=== PATIENT | male | born 1970 | race American Indian/Alaskan Native ===

== ENCOUNTER 2017-07-15 20:50 | Inpatient (IN) | payer MEDICARE, OTHER ==
[2017-07-15 21:27] LABS: Basophils % (Auto) 0.2 % (0.0-1.8); Eosinophils % (Auto) 0.5 % (0.0-4.3); Hematocrit 37.9 % (35.5-45.6); Lymphocytes # (Auto) 1.2 K/mm3 (1.2-5.4); Lymphocytes % (Auto) 20.4 % (13.4-35.0); Mean Corpuscular HGB Conc 34 % (32-34); Mean Corpuscular Hemoglobin 28 pg (28-32); Mean Corpuscular Volume 82 fl (84-94); Monocytes # (Auto) 0.4 K/mm3 (0.0-0.8); Monocytes % (Auto) 6.1 % (0.0-7.3); Platelet Count 136 K/mm3 (140-440); Red Blood Count 4.64 M/mm3 (3.65-5.03); Red Cell Distribution Width 15.1 % (13.2-15.2)
[2017-07-15 21:42] LABS: Bilirubin,Urine NEG (Negative); Blood,Urine NEG (Negative); Color,Urine Yellow (Yellow); Mucus,Urine FEW /HPF; Urobilinogen,Urine < 2.0 mg/dL (<2.0); WBC,Urine < 1.0 /HPF (0.0-6.0)
[2017-07-15 21:45] LABS: Alanine Aminotransferase 17 units/L (7-56); Albumin 4.3 g/dL (3.9-5); BUN/Creatinine Ratio 16; Blood Urea Nitrogen 14 mg/dL (9-20); Hemolysis Index 3; Lipase 64 units/L (13-60)
--- NOTE | 2017-07-16 06:32 | Emergency Department Report ---
ED Abdominal Pain HPI - General Chief Complaint: Abdominal Pain Stated Complaint: VOMITING Time Seen by Provider: 07/16/17 06:28 Source: patient Mode of arrival: Ambulatory Limitations: No Limitations - History of Present Illness Initial Comments: 47-year-old male has a history of pancreatitis. He complains of epigastric pain and vomiting. States the symptoms started yesterday. He's had no fever or chills. MD Complaint: abdominal pain -: Gradual, days(s) Location: epigastric Radiation: none Migration to: no migration Severity: moderate Quality: aching Consistency: constant Improves With: nothing Worsens With: nothing Associated Symptoms: vomiting - Related Data Allergies Allergy/AdvReac Type Severity Reaction Status Date / Time No Known Allergies Allergy Unverified 06/01/15 08:36 ED Review of Systems ROS: Stated complaint: VOMITING Other details as noted in HPI Constitutional: denies: chills, fever Eyes: denies: eye pain, eye discharge, vision change ENT: denies: ear pain, throat pain Respiratory: denies: cough, shortness of breath, wheezing Cardiovascular: denies: chest pain, palpitations Endocrine: no symptoms reported Gastrointestinal: abdominal pain, nausea, vomiting. denies: diarrhea Genitourinary: denies: urgency, dysuria Musculoskeletal: denies: back pain, joint swelling, arthralgia Skin: denies: rash, lesions Neurological: denies: headache, weakness, paresthesias Psychiatric: denies: anxiety, depression Hematological/Lymphatic: denies: easy bleeding, easy bruising ED Past Medical Hx - Past Medical History Previous Medical History?: Yes Additional medical history: Pancretitis - Surgical History Past Surgical History?: Yes Additional Surgical History: left ankle - Social History Smoking Status: Never Smoker Substance Use Type: None ED Physical Exam - General Limitations: No Limitations General appearance: alert, in no apparent distress - Head Head exam: Present: atraumatic, normocephalic - Eye Eye exam: Present: normal appearance - ENT ENT exam: Present: mucous membranes moist - Neck Neck exam: Present: normal inspection - Respiratory Respiratory exam: Present: normal lung sounds bilaterally. Absent: respiratory distress - Cardiovascular Cardiovascular Exam: Present: regular rate, normal rhythm. Absent: systolic murmur, diastolic murmur, rubs, gallop - GI/Abdominal GI/Abdominal exam: Present: soft, tenderness (epigastric mild to moderate), normal bowel sounds. Absent: distended, guarding, rebound, rigid - Rectal Rectal exam: Present: deferred - Extremities Exam Extremities exam: Present: normal inspection - Back Exam Back exam: Present: normal inspection - Neurological Exam Neurological exam: Present: alert, oriented X3, CN II-XII intact. Absent: motor sensory deficit - Psychiatric Psychiatric exam: Present: normal affect, normal mood - Skin Skin exam: Present: warm, dry, intact, normal color. Absent: rash ED Course Vital Signs 07/15/17 07/16/17 07/16/17 21:00 06:27 06:52 Temperature 99.3 F 97.9 F Pulse Rate 102 H 69 Respiratory 17 16 16 Rate Blood Pressure 185/113 Blood Pressure 131/80 [Right] O2 Sat by Pulse 97 100 100 Oximetry 07/16/17 07/16/17 07:46 07:50 Temperature 97.9 F Pulse Rate 62 Respiratory 16 Rate Blood Pressure Blood Pressure 169/96 [Right] O2 Sat by Pulse 98 98 Oximetry - Reevaluation(s) Reevaluation #1: Vascular study is negative for splenic vein thrombosis. CT of the abdomen and pelvis is positive for edema of the pancreas and a pseudocyst of the tail. Extrinsic Compression of the stomach is noted. Patient has recurrent pain. I think he would be better off with bowel rest IV fluids and analgesia in the hospital. He is admitted to Dr. Cardona"s service for further care and evaluation 07/16/17 10:28 ED Medical Decision Making - Lab Data Result diagrams: 07/15/17 21:14 07/15/17 21:14 Laboratory Results - last 24 hr 07/15/17 07/15/17 07/15/17 21:14 21:14 Unknown WBC 5.9 RBC 4.64 Hgb 13.0 Hct 37.9 MCV 82 L MCH 28 MCHC 34 RDW 15.1 Plt Count 136 L Lymph % (Auto) 20.4 [place] % (Auto) 6.1 Eos % (Auto) 0.5 Baso % (Auto) 0.2 Lymph # 1.2 [place] # 0.4 Eos # 0.0 Baso # 0.0 Seg Neutrophils % 72.8 H Seg Neutrophils # 4.3 Sodium 139 Potassium 3.8 Chloride 95.8 L Carbon Dioxide 33 H Anion Gap 14 BUN 14 Creatinine 0.9 Estimated GFR > 60 BUN/Creatinine Ratio 16 Glucose 130 H Calcium 9.0 Total Bilirubin 0.40 AST 32 ALT 17 Alkaline Phosphatase 70 Total Protein 8.2 Albumin 4.3 Albumin/Globulin Ratio 1.1 Lipase 64 H Urine Color Yellow Urine Turbidity Clear Urine pH 8.0 H Ur Specific [place] 1.019 Urine Protein 30 mg/dl Urine Glucose (UA) Neg Urine Ketones Neg Urine Blood Neg Urine Nitrite Neg Urine Bilirubin Neg Urine Urobilinogen < 2.0 Ur Leukocyte Esterase Neg Urine WBC (Auto) < 1.0 Urine RBC (Auto) 5.0 Urine Mucus Few - Radiology Data Radiology results: report reviewed Critical care attestation.: If time is entered above; I have spent that time in minutes in the direct care of this critically ill patient, excluding procedure time. ED Disposition Clinical Impression: Pancreatic pseudocyst Acute pancreatitis Qualifiers: Pancreatitis type: other Acute pancreatitis complication: unspecified Qualified Code(s): K85.80 - Other acute pancreatitis without necrosis or infection Disposition: 09 OP ADMIT IP TO THIS HOSP Is pt being admited?: Yes Does the pt Need Aspirin: No Condition: Stable Referrals: PRIMARY MD CECE [Primary Care Provider] - 3-5 Days Time of Disposition: 10:33
[2017-07-16] MEDS ORDERED: DILAUDID IV ONE ×3 (07:08→10:25)
[2017-07-16] MEDS ORDERED: PROTONIX IV ONE (07:08)
[2017-07-16] MEDS ORDERED: ZOFRAN IV ONE ×3 (07:08→10:25)
[2017-07-16] MEDS ORDERED: NACL 0.9% 1000 ML 1,000 ML IV ONE (07:08)
--- NOTE | 2017-07-16 09:57 | Cat Scan Report ---
CT scan of abdomen and pelvis with IV and oral contrast: Compared to 06/01/15. History: Abdominal pain. Findings: Normal lung bases. No pleural pericardial effusion. Normal liver spleen. Patient status post cholecystectomy. There is a pseudocyst identified the tail of the pancreas which is smaller in size compared to previous study and measures 2.4 cm in diameter. Edema noted on the body of the pancreas with extrinsic pressure on the adjacent stomach. Normal adrenals. Small cyst in the left and right kidney without interval change. Normal bladder. No free intraperitoneal fluid or air. No evidence of adenopathy. Gaseous colonic stool in colon. No evidence of appendicitis or diverticulitis. Impression: Smaller pseudocyst tail of the pancreas compared to previous study. Edema of the body of pancreas with extrinsic pressure on the adjacent stomach. Bilateral small cysts without interval change
--- NOTE | 2017-07-16 10:42 | History and Physical Report ---
History of Present Illness Chief complaint: Vomiting of blood History of present illness: 47-year-old -[place] male with past medical history significant for alcoholic pancreatitis presented to the emergency department with complaints of vomiting of dark material that started yesterday. Patient had vomited 10-12x yesterday and all are coffee ground emesis. Patient has associated nausea but denied diarrhea, fever, chills. She is also complaining generalized abdominal pain, sharp and crampy, 9/10 in intensity, with no radiation. Patient said he had history of alcoholic pancreatitis and last episode was more months ago. Patient quit drinking alcohol 10 years ago. Patient has been followed by Dr. Sibley. Patient had history of splenic vein thrombosis per ER doctor report. REVIEW OF SYSTEMS: GENERAL: no weight change, no fatigue, no fever HEAD: no head ache EYES: no blurry vision, no acute visual loss EARS: no hearing loss, no discharge, no earache NOSE: no stuffiness, no sneezing, no discharge MOUTH, THROAT AND NECK: no bleeding gums, no sore throat, no swollen neck CARDIAC: no palpitations, no dyspnea on exertion, no orthopnea, no PND, no edema , no chest pain RESPIRATORY: no shortness of breath, no wheeze, no cough, no sputum, no hemoptysis, no asthma GI: As stated in the HPI. URINARY: no change in frequency, no urgency, no polyuria, no hematuria, no incontinence MUSCULOSKELETAL: no muscle weakness, no pain, no joint stiffness NEUROLOGIC: no loss of sensation/numbness, no tingling, no tremors, no weakness/ paralysis HEMATOLOGIC: no anemia, no easy bruising SKIN: no rashes ENDOCRINE: no heat/cold intolerance, no polyuria, no polydipsia, no thyroid problems, no diabetes PSYCHIATRIC: no anxiety, no depression, no suicidal ideations Past History Past Medical History: other (pancreatitis) Past Surgical History: cholecystectomy Social history: full code. denies: smoking, alcohol abuse (quit 10 years ago), prescription drug abuse, IV drug use Family history: cancer (lung ca both mother and father) Medications and Allergies Allergies Allergy/AdvReac Type Severity Reaction Status Date / Time No Known Allergies Allergy Unverified 06/01/15 08:36 Active Meds: Active Medications Sodium Chloride (Nacl 0.9% 1000 Ml) 1,000 mls @ 125 mls/hr IV ONCE ONE Stop: 07/16/17 15:07 Last Admin: 07/16/17 07:40 Dose: 125 mls/hr Exam - Physical Exam Narrative exam: Not in cardiopulmonary distress. The patient appeared well nourished and normally developed. Vital signs as documented. Head exam is unremarkable. No scleral icterus . Neck is without jugular venous distension, thyromegaly, or carotid bruits. Lungs are clear to auscultation. Cardiac exam reveals regular rate and Rhythm. First and second heart sounds normal. No murmurs, rubs or gallops. Abdominal exam reveals abdominal tenderness. Extremities are nonedematous and both femoral and pedal pulses are normal. [employer]: Alert and oriented 3. No focal weakness. - Constitutional Vitals: Temp Pulse Resp BP Pulse Ox 97.9 F 62 16 169/96 98 07/16/17 07:50 07/16/17 07:50 07/16/17 07:50 07/16/17 07:50 07/16/17 07:50 Results - Labs CBC & Chem 7: 07/15/17 21:14 07/15/17 21:14 Labs: Laboratory Last Values WBC 5.9 K/mm3 (4.5-11.0) 07/15/17 21:14 RBC 4.64 M/mm3 (3.65-5.03) 07/15/17 21:14 Hgb 13.0 gm/dl (11.8-15.2) 07/15/17 21:14 Hct 37.9 % (35.5-45.6) 07/15/17 21:14 MCV 82 fl (84-94) L 07/15/17 21:14 MCH 28 pg (28-32) 07/15/17 21:14 MCHC 34 % (32-34) 07/15/17 21:14 RDW 15.1 % (13.2-15.2) 07/15/17 21:14 Plt Count 136 K/mm3 (140-440) L 07/15/17 21:14 Lymph % (Auto) 20.4 % (13.4-35.0) 07/15/17 21:14 [place] % (Auto) 6.1 % (0.0-7.3) 07/15/17 21:14 Eos % (Auto) 0.5 % (0.0-4.3) 07/15/17 21:14 Baso % (Auto) 0.2 % (0.0-1.8) 07/15/17 21:14 Lymph # 1.2 K/mm3 (1.2-5.4) 07/15/17 21:14 [place] # 0.4 K/mm3 (0.0-0.8) 07/15/17 21:14 Eos # 0.0 K/mm3 (0.0-0.4) 07/15/17 21:14 Baso # 0.0 K/mm3 (0.0-0.1) 07/15/17 21:14 Seg Neutrophils % 72.8 % (40.0-70.0) H 07/15/17 21:14 Seg Neutrophils # 4.3 K/mm3 (1.8-7.7) 07/15/17 21:14 Sodium 139 mmol/L (137-145) 07/15/17 21:14 Potassium 3.8 mmol/L (3.6-5.0) 07/15/17 21:14 Chloride 95.8 mmol/L (98-107) L 07/15/17 21:14 Carbon Dioxide 33 mmol/L (22-30) H 07/15/17 21:14 Anion Gap 14 mmol/L 07/15/17 21:14 BUN 14 mg/dL (9-20) 07/15/17 21:14 Creatinine 0.9 mg/dL (0.8-1.5) 07/15/17 21:14 Estimated GFR > 60 ml/min 07/15/17 21:14 BUN/Creatinine Ratio 16 % 07/15/17 21:14 Glucose 130 mg/dL (75-100) H 07/15/17 21:14 Calcium 9.0 mg/dL (8.4-10.2) 07/15/17 21:14 Total Bilirubin 0.40 mg/dL (0.1-1.2) 07/15/17 21:14 AST 32 units/L (5-40) 07/15/17 21:14 ALT 17 units/L (7-56) 07/15/17 21:14 Alkaline Phosphatase 70 units/L (35-129) 07/15/17 21:14 Total Protein 8.2 g/dL (6.3-8.2) 07/15/17 21:14 Albumin 4.3 g/dL (3.9-5) 07/15/17 21:14 Albumin/Globulin Ratio 1.1 % 07/15/17 21:14 Lipase 64 units/L (13-60) H 07/15/17 21:14 Urine Color Yellow (Yellow) 07/15/17 Unknown Urine Turbidity Clear (Clear) 07/15/17 Unknown Urine pH 8.0 (5.0-7.0) H 07/15/17 Unknown Ur Specific [place] 1.019 (1.003-1.030) 07/15/17 Unknown Urine Protein 30 mg/dl mg/dL (Negative) 07/15/17 Unknown Urine Glucose (UA) Neg mg/dL (Negative) 07/15/17 Unknown Urine Ketones Neg mg/dL (Negative) 07/15/17 Unknown Urine Blood Neg (Negative) 07/15/17 Unknown Urine Nitrite Neg (Negative) 07/15/17 Unknown Urine Bilirubin Neg (Negative) 07/15/17 Unknown Urine Urobilinogen < 2.0 mg/dL (<2.0) 07/15/17 Unknown Ur Leukocyte Esterase Neg (Negative) 07/15/17 Unknown Urine WBC (Auto) < 1.0 /HPF (0.0-6.0) 07/15/17 Unknown Urine RBC (Auto) 5.0 /HPF (0.0-6.0) 07/15/17 Unknown Urine Mucus Few /HPF 07/15/17 Unknown - Imaging and Cardiology US - abdomen: report reviewed Assessment and Plan Assessment and plan: Upper GI bleed - Patient is on IV pantoprazole, nothing by mouth, IV fluids, monitor H&H - GI consulted Pancreatitis with pseudocyst - CT abdomen and pelvis showed, pancreatitis, pseudocyst with compression of the gastric area - Lipase is not elevated much - Aorto iliac ultrasound was done to rule out thrombosis - Pain control History of Splenic vein Thrombosis Per ER doc - not on any anticoagulation DVT prophylaxis - heparin Disposition - Admit to medical floor Advance Directives: Yes VTE prophylaxis?: Chemical Plan of care discussed with patient/family: Yes
[2017-07-16] MEDS ORDERED: ZOFRAN IV PRN (14:29)
[2017-07-16] MEDS: D5NS 1,000 ML IV SCH (14:39)
[2017-07-16] MEDS: PROTONIX IV SCH ×2 (14:42→22:21)
[2017-07-16] MEDS: DILAUDID IV PRN ×3 (14:43→22:20)
[2017-07-16 16:29] LABS: Hemoglobin 11.9 gm/dl (11.8-15.2)
[2017-07-16 20:30] LABS: Hematocrit 38.6 % (35.5-45.6); Hemoglobin 12.6 gm/dl (11.8-15.2)
[2017-07-17] MEDS: DILAUDID IV PRN ×6 (02:19→22:11)
[2017-07-17 03:05] LABS: Basophils % (Auto) 0.3 % (0.0-1.8); Eosinophils % (Auto) 0.7 % (0.0-4.3); Hematocrit 36.9 % (35.5-45.6); Hemoglobin 12.5 gm/dl (11.8-15.2); Lymphocytes # (Auto) 1.5 K/mm3 (1.2-5.4); Lymphocytes % (Auto) 28.8 % (13.4-35.0); Mean Corpuscular HGB Conc 34 % (32-34); Mean Corpuscular Hemoglobin 28 pg (28-32); Mean Corpuscular Volume 82 fl (84-94); Monocytes # (Auto) 0.3 K/mm3 (0.0-0.8); Monocytes % (Auto) 6.2 % (0.0-7.3); Platelet Count 142 K/mm3 (140-440); Red Cell Distribution Width 14.7 % (13.2-15.2)
[2017-07-17 03:25] LABS: Alanine Aminotransferase 13 units/L (7-56); Albumin 3.8 g/dL (3.9-5); BUN/Creatinine Ratio 14; Blood Urea Nitrogen 10 mg/dL (9-20); Calcium 8.4 mg/dL (8.4-10.2); Hemolysis Index 4
[2017-07-17] MEDS: D5NS 1,000 ML IV SCH ×2 (05:05→18:12)
[2017-07-17 09:55] LABS: Hemoglobin 12.2 gm/dl (11.8-15.2)
--- NOTE | 2017-07-17 10:00 | Gastroenterology Consultation ---
History of Present Illness - Reason for Consult Consult date: 07/17/17 pancreatitis, GI bleed Requesting physician: THOMAS CABRALES - History of Present Illness Patient is a 47 y/o male with PMH of chronic pancreatitis who presented to ED with c/o epigastric pain and N/V with coffee-ground emesis. Upon admission, H/H was found to be stable. Lipase was noted to elevated at [address] showing edema of the pancreas, a pseudocyst of the tail (smaller than previous study), and extrinsic compression of the stomach. Patient is previously known to our service and followed by Dr. Sibley. 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 Aorto iliac U/S this admission negative for thrombosis. Last EGD 12/2016. No hx of ETOH abuse. This morning pt was resting in bed w/o acute distress. Reports epigastric pain and N/V are now improved. Denies any further episodes of CGE since Monday. No hematemesis, melena, or hematochezia. Denies CP, SOB, dizziness, wt loss, dysphagia, odynophagia, diarrhea, or constipation. Past History Past Medical History: other (pancreatitis, splenic vein thrombosis, gastric/ esophageal varices) Past Surgical History: cholecystectomy Social history: full code. denies: smoking, alcohol abuse (quit 10 years ago), prescription drug abuse, IV drug use Family history: cancer (lung ca both mother and father) Medications and Allergies Allergies Allergy/AdvReac Type Severity Reaction Status Date / Time No Known Allergies Allergy Unverified 06/01/15 08:36 Active Meds: Active Medications Hydromorphone HCl (Dilaudid) 1 mg IV Q4H PRN PRN Reason: Pain , Severe (7-10) Last Admin: 07/17/17 06:33 Dose: 1 mg Dextrose/Sodium Chloride (D5ns) 1,000 mls @ 75 mls/hr IV DIRECT ROBERTH Last Admin: 07/17/17 05:05 Dose: 75 mls/hr Ondansetron HCl (Zofran) 4 mg IV Q8H PRN PRN Reason: N/V unrelieved by Reglan Pantoprazole Sodium (Protonix) 40 mg IV BID ROBERTH Last Admin: 07/16/17 22:21 Dose: 40 mg Review of Systems - Review of Systems All systems: negative Gastrointestinal: abdominal pain, nausea, vomiting, coffee ground emesis Exam - Constitutional Vital Signs: Temp Pulse Resp BP Pulse Ox 98.7 F 73 15 144/84 95 07/17/17 07:18 07/17/17 07:18 07/17/17 07:18 07/17/17 07:18 07/17/17 07:18 General appearance: no acute distress - EENT Eyes: PERRL, EOM intact ENT: hearing intact - Respiratory Respiratory: bilateral: CTA - Cardiovascular Rhythm: regular Heart Sounds: Present: S1 & S2 - Gastrointestinal General gastrointestinal: Present: soft, non-tender, non-distended, normal bowel sounds, other (midline scar from previous surgery) - Neurologic Neurological: alert and oriented x3 - Labs CBC & Chem 7: 07/17/17 09:41 07/17/17 02:45 Lab Results: Laboratory Results - last 24 hr 07/16/17 07/16/17 07/17/17 15:55 20:02 02:45 WBC 5.3 RBC 4.50 Hgb 11.9 12.6 12.5 Hct 36.0 38.6 36.9 MCV 82 L MCH 28 MCHC 34 RDW 14.7 Plt Count 142 Lymph % (Auto) 28.8 [place] % (Auto) 6.2 Eos % (Auto) 0.7 Baso % (Auto) 0.3 Lymph # 1.5 [place] # 0.3 Eos # 0.0 Baso # 0.0 Seg Neutrophils % 64.0 Seg Neutrophils # 3.4 Sodium Potassium Chloride Carbon Dioxide Anion Gap BUN Creatinine Estimated GFR BUN/Creatinine Ratio Glucose Calcium Total Bilirubin AST ALT Alkaline Phosphatase Total Protein Albumin Albumin/Globulin Ratio 07/17/17 07/17/17 02:45 09:41 WBC RBC Hgb 12.2 Hct 36.0 MCV MCH MCHC RDW Plt Count Lymph % (Auto) [place] % (Auto) Eos % (Auto) Baso % (Auto) Lymph # [place] # Eos # Baso # Seg Neutrophils % Seg Neutrophils # Sodium 136 L Potassium 3.9 Chloride 98.0 Carbon Dioxide 26 D Anion Gap 16 BUN 10 Creatinine 0.7 L Estimated GFR > 60 BUN/Creatinine Ratio 14 Glucose 125 H Calcium 8.4 Total Bilirubin 0.80 AST 16 ALT 13 Alkaline Phosphatase 55 Total Protein 6.5 D Albumin 3.8 L Albumin/Globulin Ratio 1.4 Assessment and Plan 1.epigastric pain 2.N/V 3.coffee-ground emesis 4.h/o chronic pancreatitis 2/2 traumatic work injury (no ETOH abuse) 5.h/o gastro-esophageal varices 2/2 hx of splenic vein thrombosis -lipase 64 -LFTs-WNL -abd CT showed edema of the pancreas, smaller pseudocyst of the tail, and extrinsic compression of the stomach -Aorto iliac U/S-negative for thrombosis -H/H stable-12.5/36.9 -continue to monitor H/H and transfuse as needed -no active signs of bleeding x 2 days -last EGD 12/2016 revealed gastro-esophageal varices and esophagitis -no plans for repeat EGD at this time, unless overt bleeding develops -clinically, pt is stable and reports feeling better with epigastric pain and N/ V now improved -start clear liquids-advance as tolerated -continue PPI and supportive care -patient will likely need radiological ablation of gastric varices as an outpatient -further recommendations to follow
[2017-07-17] MEDS: PROTONIX IV SCH ×2 (10:12→22:12)
--- NOTE | 2017-07-17 15:35 | Progress Note ---
Assessment and Plan Assessment and plan: Upper GI bleed - Patient is on PPI, started on clear liquid diet - GI consulted and patient doesn't need EGD Pancreatitis with pseudocyst - CT abdomen and pelvis showed, pseudocyst with compression of the gastric area - Lipase is not elevated much - Aorto iliac ultrasound was done to rule out thrombosis - Pain control History of Splenic vein Thrombosis Per ER doc DVT prophylaxis - heparin Disposition - Per GI History Interval history: Patient was seen and evaluated this morning, patient's abdominal pain is getting better, patient didn't have hematemesis after admission. Hospitalist Physical - Physical exam Narrative exam: Not in cardiopulmonary distress. The patient appeared well nourished and normally developed. Vital signs as documented. Head exam is unremarkable. No scleral icterus . Neck is without jugular venous distension, thyromegaly, or carotid bruits. Lungs are clear to auscultation. Cardiac exam reveals regular rate and Rhythm. First and second heart sounds normal. No murmurs, rubs or gallops. Abdominal exam reveals no abdominal tenderness. Extremities are nonedematous and both femoral and pedal pulses are normal. RECYCLING TECH: Alert and oriented 3. No focal weakness. - Constitutional Vitals: Temp Pulse Resp BP Pulse Ox 99.2 F 71 16 140/82 95 07/17/17 15:19 07/17/17 15:19 07/17/17 15:19 07/17/17 15:19 07/17/17 15:19 Results - Labs CBC & Chem 7: 07/17/17 09:41 07/17/17 02:45 Labs: Laboratory Last Values WBC 5.3 K/mm3 (4.5-11.0) 07/17/17 02:45 RBC 4.50 M/mm3 (3.65-5.03) 07/17/17 02:45 Hgb 12.2 gm/dl (11.8-15.2) 07/17/17 09:41 Hct 36.0 % (35.5-45.6) 07/17/17 09:41 MCV 82 fl (84-94) L 07/17/17 02:45 MCH 28 pg (28-32) 07/17/17 02:45 MCHC 34 % (32-34) 07/17/17 02:45 RDW 14.7 % (13.2-15.2) 07/17/17 02:45 Plt Count 142 K/mm3 (140-440) 07/17/17 02:45 Lymph % (Auto) 28.8 % (13.4-35.0) 07/17/17 02:45 [place] % (Auto) 6.2 % (0.0-7.3) 07/17/17 02:45 Eos % (Auto) 0.7 % (0.0-4.3) 07/17/17 02:45 Baso % (Auto) 0.3 % (0.0-1.8) 07/17/17 02:45 Lymph # 1.5 K/mm3 (1.2-5.4) 07/17/17 02:45 [place] # 0.3 K/mm3 (0.0-0.8) 07/17/17 02:45 Eos # 0.0 K/mm3 (0.0-0.4) 07/17/17 02:45 Baso # 0.0 K/mm3 (0.0-0.1) 07/17/17 02:45 Seg Neutrophils % 64.0 % (40.0-70.0) 07/17/17 02:45 Seg Neutrophils # 3.4 K/mm3 (1.8-7.7) 07/17/17 02:45 Sodium 136 mmol/L (137-145) L 07/17/17 02:45 Potassium 3.9 mmol/L (3.6-5.0) 07/17/17 02:45 Chloride 98.0 mmol/L (98-107) 07/17/17 02:45 Carbon Dioxide 26 mmol/L (22-30) D 07/17/17 02:45 Anion Gap 16 mmol/L 07/17/17 02:45 BUN 10 mg/dL (9-20) 07/17/17 02:45 Creatinine 0.7 mg/dL (0.8-1.5) L 07/17/17 02:45 Estimated GFR > 60 ml/min 07/17/17 02:45 BUN/Creatinine Ratio 14 % 07/17/17 02:45 Glucose 125 mg/dL (75-100) H 07/17/17 02:45 Calcium 8.4 mg/dL (8.4-10.2) 07/17/17 02:45 Total Bilirubin 0.80 mg/dL (0.1-1.2) 07/17/17 02:45 AST 16 units/L (5-40) 07/17/17 02:45 ALT 13 units/L (7-56) 07/17/17 02:45 Alkaline Phosphatase 55 units/L (35-129) 07/17/17 02:45 Total Protein 6.5 g/dL (6.3-8.2) D 07/17/17 02:45 Albumin 3.8 g/dL (3.9-5) L 07/17/17 02:45 Albumin/Globulin Ratio 1.4 % 07/17/17 02:45 Lipase 64 units/L (13-60) H 07/15/17 21:14 Urine Color Yellow (Yellow) 07/15/17 Unknown Urine Turbidity Clear (Clear) 07/15/17 Unknown Urine pH 8.0 (5.0-7.0) H 07/15/17 Unknown Ur Specific [place] 1.019 (1.003-1.030) 07/15/17 Unknown Urine Protein 30 mg/dl mg/dL (Negative) 07/15/17 Unknown Urine Glucose (UA) Neg mg/dL (Negative) 07/15/17 Unknown Urine Ketones Neg mg/dL (Negative) 07/15/17 Unknown Urine Blood Neg (Negative) 07/15/17 Unknown Urine Nitrite Neg (Negative) 07/15/17 Unknown Urine Bilirubin Neg (Negative) 07/15/17 Unknown Urine Urobilinogen < 2.0 mg/dL (<2.0) 07/15/17 Unknown Ur Leukocyte Esterase Neg (Negative) 07/15/17 Unknown Urine WBC (Auto) < 1.0 /HPF (0.0-6.0) 07/15/17 Unknown Urine RBC (Auto) 5.0 /HPF (0.0-6.0) 07/15/17 Unknown Urine Mucus Few /HPF 07/15/17 Unknown
--- NOTE | 2017-07-17 16:52 | Vascular Lab Report ---
Splenic vein ultrasound Reason for exam: Splenic vein thrombosis Comments: The splenic vein was poorly visualized due to overlying bowel gas. The midportion of the splenic vein could not be seen. The portions of the splenic vein which are visualized are patent however. The hepatic vein appears to be patent. The inferior vena cava appears to be patent. A complex cystic structure appears to be at the hilum of the spleen. Impression: Incomplete visualization of the splenic vein. Portions are visible are patent. Nonspecific cystic structure seen at the hilum of the spleen. Consider further evaluation.
[2017-07-18] MEDS: DILAUDID IV PRN ×4 (02:12→14:22)
[2017-07-18] MEDS: D5NS 1,000 ML IV SCH (06:19)
[2017-07-18 07:23] LABS: Basophils % (Auto) 0.3 % (0.0-1.8); Eosinophils % (Auto) 1.4 % (0.0-4.3); Hemoglobin 11.8 gm/dl (11.8-15.2); Lymphocytes # (Auto) 1.4 K/mm3 (1.2-5.4); Lymphocytes % (Auto) 38.1 % (13.4-35.0); Mean Corpuscular HGB Conc 35 % (32-34); Mean Corpuscular Hemoglobin 28 pg (28-32); Mean Corpuscular Volume 81 fl (84-94); Monocytes # (Auto) 0.3 K/mm3 (0.0-0.8); Monocytes % (Auto) 8.7 % (0.0-7.3); Platelet Count 126 K/mm3 (140-440); Red Cell Distribution Width 14.7 % (13.2-15.2)
[2017-07-18 08:29] LABS: Alanine Aminotransferase 12 units/L (7-56); Albumin 3.5 g/dL (3.9-5); BUN/Creatinine Ratio 13; Blood Urea Nitrogen 9 mg/dL (9-20); Hemolysis Index 4; Lipase 73 units/L (13-60)
[2017-07-18 08:53] VITALS: BP 137/92
--- NOTE | 2017-07-18 09:44 | Gastroenterology Progress Note ---
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 -abd CT showed edema of the pancreas, smaller pseudocyst of the tail, and extrinsic compression of the stomach -Aorto iliac U/S-negative for thrombosis -HGB 11.8 -continue to monitor H/H and transfuse as needed -no active signs of bleeding overnight or this am -last EGD 12/2016 revealed gastro-esophageal varices and esophagitis -no plans for repeat EGD at this time, unless overt bleeding develops -clinically, pt is stable with abd pain now improved to baseline and no N/V -tolerating clears- will advance diet -continue PPI and supportive care -no further GI recommendations at this time -patient okay to be d/c per GI standpoint with follow up clinic appt in 2 weeks to schedule possible referral for radiological ablation of gastric varices -will sign off, please call if needed Subjective Date of service: 07/18/17 Principal diagnosis: pancreatitis, GI bleed Interval history: Patient resting in bed w/o distress. He reports feeling better this am with no abd improved to his baseline. Denies N/V and tolerating clears. Requesting to advance diet. Objective - Constitutional Vitals: Temp Pulse Resp BP Pulse Ox 98.4 F 67 20 137/92 96 07/18/17 07:31 07/18/17 07:31 07/18/17 07:31 07/18/17 07:31 07/18/17 07:31 General appearance: no acute distress - Respiratory Respiratory: bilateral: CTA - Cardiovascular Rhythm: regular Heart Sounds: Present: S1 & S2 - Gastrointestinal General gastrointestinal: Present: soft, non-tender, non-distended, normal bowel sounds, other (midline scar from previous surgery) - Neurologic Neurological: alert and oriented x3 - Labs CBC & Chem 7: 07/18/17 05:33 07/18/17 05:33 Labs: Laboratory Results - last 24 hr 07/17/17 07/18/17 07/18/17 09:41 05:33 05:33 WBC 3.6 L RBC 4.20 Hgb 12.2 11.8 Hct 36.0 34.0 L MCV 81 L MCH 28 MCHC 35 H RDW 14.7 Plt Count 126 L Lymph % (Auto) 38.1 H [place] % (Auto) 8.7 H Eos % (Auto) 1.4 Baso % (Auto) 0.3 Lymph # 1.4 [place] # 0.3 Eos # 0.0 Baso # 0.0 Seg Neutrophils % 51.5 Seg Neutrophils # 1.8 Sodium 137 Potassium 4.0 Chloride 101.0 Carbon Dioxide 29 Anion Gap 11 BUN 9 Creatinine 0.7 L Estimated GFR > 60 BUN/Creatinine Ratio 13 Glucose 133 H Calcium 8.0 L Total Bilirubin 0.50 AST 14 ALT 12 Alkaline Phosphatase 57 C-Reactive Protein 0.10 Total Protein 6.5 Albumin 3.5 L Albumin/Globulin Ratio 1.2 Lipase 73 H <DEMETRA MERAZ R - Last Filed: 07/18/17 17:12> Assessment and Plan Agree with discharge. Will defer to Dr. Sibley regarding management of known non -bleeding gastro-esophageal varices. Objective - Constitutional Vitals: Temp Pulse Resp BP Pulse Ox 98.4 F 67 20 137/92 96 07/18/17 07:31 07/18/17 07:31 07/18/17 07:31 07/18/17 07:31 07/18/17 07:31 - Labs CBC & Chem 7: 07/18/17 05:33 07/18/17 05:33 Labs: Laboratory Results - last 24 hr 07/18/17 07/18/17 05:33 05:33 WBC 3.6 L RBC 4.20 Hgb 11.8 Hct 34.0 L MCV 81 L MCH 28 MCHC 35 H RDW 14.7 Plt Count 126 L Lymph % (Auto) 38.1 H [place] % (Auto) 8.7 H Eos % (Auto) 1.4 Baso % (Auto) 0.3 Lymph # 1.4 [place] # 0.3 Eos # 0.0 Baso # 0.0 Seg Neutrophils % 51.5 Seg Neutrophils # 1.8 Sodium 137 Potassium 4.0 Chloride 101.0 Carbon Dioxide 29 Anion Gap 11 BUN 9 Creatinine 0.7 L Estimated GFR > 60 BUN/Creatinine Ratio 13 Glucose 133 H Calcium 8.0 L Total Bilirubin 0.50 AST 14 ALT 12 Alkaline Phosphatase 57 C-Reactive Protein 0.10 Total Protein 6.5 Albumin 3.5 L Albumin/Globulin Ratio 1.2 Lipase 73 H
[2017-07-18] MEDS ORDERED: PROTONIX PO SCH (10:00)
--- NOTE | 2017-07-18 11:53 | Discharge Summary ---
Providers - Providers Date of Admission: 07/16/17 10:34 Attending physician: THOMAS CABRALES MD 07/16/17 10:43 Consult to Physician [CONS] Routine Comment: Consulting Provider: GERMAN MORRISON Physician Instructions: Reason For Exam: Pancreatitis with Pseudocyst, GI bleed Primary care physician: [employer] Hospitalization Reason for admission: Upper GI bleed Condition: Stable Disposition: DC-01 TO HOME OR SELFCARE Time spent for discharge: 31 minutes - Discharge Diagnoses (1) Hematemesis Status: Acute (2) Pancreatic pseudocyst Status: Acute (3) Varices, esophageal Status: Acute (4) Varices, gastric Status: Acute (5) Splenic vein thrombosis Status: Chronic Core Measure Documentation - Palliative Care Palliative Care/ Comfort Measures: Not Applicable - Core Measures Any of the following diagnoses?: none Exam - Physical Exam Narrative exam: Not in cardiopulmonary distress. The patient appeared well nourished and normally developed. Vital signs as documented. Head exam is unremarkable. No scleral icterus . Neck is without jugular venous distension, thyromegaly, or carotid bruits. Lungs are clear to auscultation. Cardiac exam reveals regular rate and Rhythm. First and second heart sounds normal. No murmurs, rubs or gallops. Abdominal exam reveals no abdominal tenderness. Extremities are nonedematous and both femoral and pedal pulses are normal. PLASMA SPECIALIST: Alert and oriented 3. No focal weakness. - Constitutional Vitals: Temp Pulse Resp BP Pulse Ox 98.4 F 67 20 137/92 96 07/18/17 07:31 07/18/17 07:31 07/18/17 07:31 07/18/17 07:31 07/18/17 07:31 Plan Activity: no restrictions Weight Bearing Status: Full Weight Bearing Diet: advance as tolerated Additional Instructions: [facility] Follow up with: STEVEN ZHAO MD [Primary Care Provider] - 3-5 Days GERMAN MORRISON MD [Staff Physician] - 14 Days Prescriptions: Pantoprazole [Protonix TAB] 40 mg PO DAILY #30 tablet
== END 2017-07-18 16:40 | disposition home or self-care (01) | DRG 368 ==
LOC: ED 20:50 → 3A 07-16 10:34
PROVIDERS: ADMIT Internal Medicine; ATTEND Internal Medicine
DX: I85.01 Esophageal varices with bleeding (principal); K85.90 Acute pancreatitis without necrosis or infection, unspecified; K86.3 Pseudocyst of pancreas; K92.0 Hematemesis; D73.5 Infarction of spleen; I86.4 Gastric varices
CPT/HCPCS: 36415; 74177; 80053; 81001; 83690; 85014; 85018; 85025; 86140; 93979; C9113; J1170; J2405; J7030; J7042; Q9967

== ENCOUNTER 2017-11-15 11:37 | Inpatient (IN) | payer MEDICAID ==
[2017-11-14 09:04] LABS: Basophils % (Auto) 0.3 % (0.0-1.8); Eosinophils # (Auto) 0.1 K/mm3 (0.0-0.4); Eosinophils % (Auto) 1.7 % (0.0-4.3); Hematocrit 40.1 % (35.5-45.6); Hemoglobin 13.7 gm/dl (11.8-15.2); Lymphocytes # (Auto) 1.4 K/mm3 (1.2-5.4); Lymphocytes % (Auto) 27.6 % (13.4-35.0); Mean Corpuscular HGB Conc 34 % (32-34); Mean Corpuscular Hemoglobin 28 pg (28-32); Mean Corpuscular Volume 83 fl (84-94); Monocytes # (Auto) 0.3 K/mm3 (0.0-0.8); Monocytes % (Auto) 5.5 % (0.0-7.3); Platelet Count 170 K/mm3 (140-440); Red Blood Count 4.83 M/mm3 (3.65-5.03); Red Cell Distribution Width 14.7 % (13.2-15.2)
--- NOTE | 2017-11-14 09:18 | Anesthesia Consultation ---
Anesthesia Consult and Med Hx Date of service: 11/14/17 - Airway Anesthetic Teeth Evaluation: Good ROM Head & Neck: Adequate Mental/Hyoid Distance: Adequate Mallampati Class: Class I Intubation Access Assessment: Good - Pulmonary Exam CTA: Yes - Cardiac Exam Cardiac Exam: RRR - Pre-Operative Health Status ASA Pre-Surgery Classification: ASA3 Proposed Anesthetic Plan: General - Pulmonary Hx Asthma: No COPD: No Hx Pneumonia: No - Central Nervous System Hx Psychiatric Problems: No - Gastrointestinal Hx Gastroesophageal Reflux Disease: Yes (hx of esophageal varices) - Endocrine Hx End Stage Renal Disease: No Hx Liver Disease: Yes (probable given hx of EtOH abuse in the past; hx of recurrent pancreatitis) Hx Non-Insulin Dependent Diabetes: Yes - Other Systems 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
[2017-11-15 09:19] LABS: INR 0.98 (0.87-1.13); Partial Thromboplastin Time 27.5 Sec. (24.2-36.6)
[2017-11-15 09:25] LABS: Alanine Aminotransferase 15 units/L (7-56); BUN/Creatinine Ratio 14; Blood Urea Nitrogen 10 mg/dL (9-20); Calcium 8.7 mg/dL (8.4-10.2); Hemolysis Index 2
[2017-11-15] MEDS: NACL 0.9% 1000 ML 1,000 ML IV SCH ×2 (09:57→21:43)
--- NOTE | 2017-11-15 11:12 | Operative Report ---
Operative Report Operative Report: Exam: Splenic artery embolization Clinical indication: Patient with enlarging gastric varices, preop embolization prior to splenectomy Date: 11/15/2017 Procedure: Following an explanation of the risks, benefits and alternatives; written informed consent was obtained. The patient was brought the angiographic suite and placed in supine position on the examination table. Initial ultrasound evaluation of his right groin demonstrated a patent right common femoral artery. The patient's right groin was prepped and draped in the usual sterile fashion. 1% lidocaine was used for anesthesia. Under ultrasound guidance, the right common femoral artery was cannulated with a 7 cm 21-gauge needle. A 0.018 guidewire was advanced centrally. The needle was removed and a micro-sheath placed. A 0.018 guidewire was exchanged for a 0.035 guidewire and the micro-sheath exchanged for a 5 [place] vascular sheath. The 5 [place] SOS Omni catheter was advanced over the guidewire and advanced to the distal abdominal aorta. The guidewire was removed. Selective cannulation of the celiac artery was performed which demonstrated prompt opacification of the common hepatic and splenic arteries. There is an upward course of the celiac artery demonstrated on CT. The origin of the superior mesenteric artery was also identified. The catheter placed in the celiac artery, a renegade hypo- microcatheter was then advanced through the 5 [place] catheter over a transcend wire. Together the guidewire and catheter were advanced into the distal splenic artery. Angiography was performed and the catheter tip positioned just proximal to the splenic hilum. Embolization of the spleen was then performed using a Gelfoam slurry to vascular pruning. Postembolization images demonstrated sluggish flow in the splenic artery with appropriate vascular pruning. The catheters, guidewires and sheaths were removed and hemostasis achieved using an Angio-Seal arterial closure device. A sterile compression dressing was applied. The patient tolerated the procedure well. There were no immediate post procedure complications. Conscious sedation was performed under the guidance of radiologic nursing. Continuous cardiopulmonary monitoring was utilized. Impression: Successful Splenic artery embolization with Gelfoam slurry
[~2017-11-15 11:37] MED LIST: ACD-A 500 ML IV ONE; ANCEF/STERILE WATER 2 GM/20 ML 2 GM/20 ML SYRINGE IV NR; ANCEF/STERILE WATER 2 GM/20 ML 2 GM/20 ML SYRINGE IV ONE; DILAUDID ONE; DIPRIVAN 10 MG/ML IV ONE; GELFOAM TP ONE; HEPARIN/NS 5000 UNIT/500ML(CATH LAB) 1,000 ML IR ONE; MARCAINE 0.5% INFILTRATI ONE; NEURONTIN PO SCH; SUBLIMAZE ONE; VERSED ONE; XYLOCAINE 2% INFILTRATI ONE; XYLOCAINE MPF 2% ONE; ZEMURON IV ONE
--- NOTE | 2017-11-15 11:48 | Anesthesia Day of Surgery ---
Anesthesia Day of Surgery - Day of Surgery Patient Examined: Yes Patient H&P Reviewed: Yes Patient is NPO: Yes (except for oral Gabapentin taken 1.5 hours prior)
[2017-11-15] MEDS ORDERED: DEMEROL IV PRN ×2 (12:00→18:52)
[2017-11-15] MEDS ORDERED: PERCOCET 5/325 PO PRN ×2 (12:00→18:52)
[2017-11-15] MEDS ORDERED: DILAUDID IV PRN ×2 (12:00→23:38)
[2017-11-15] MEDS ORDERED: ZOFRAN IV PRN ×3 (12:00→23:38)
[2017-11-15] MEDS ORDERED: NARCAN 0.4 MG/1 ML IV PRN (12:00)
[2017-11-15] MEDS ORDERED: QUELICIN ONE (13:14)
[2017-11-15] MEDS ORDERED: ANCEF ONE (13:58)
[2017-11-15] MEDS ORDERED: NEO SYNEPHRINE/NS Syringe(OR USE) IV ONE (14:08)
[2017-11-15] MEDS ORDERED: ZEMURON IV ONE (15:04)
[2017-11-15] MEDS ORDERED: ALBURX 25% (ALBUMIN) IV ONE (16:14)
[2017-11-15] MEDS ORDERED: GELFOAM TP ONE (17:07)
[2017-11-15] MEDS ORDERED: THROMBIN (BOVINE) TP ONE (17:07)
[2017-11-15] MEDS ORDERED: DECADRON ONE (17:19)
[2017-11-15] MEDS ORDERED: CALCIUM CHLORIDE IV ONE (17:22)
[2017-11-15] MEDS ORDERED: ROBINUL ONE (17:34)
[2017-11-15] MEDS ORDERED: BLOXIVERZ ONE (17:34)
[2017-11-15] MEDS ORDERED: DILAUDID ONE ×3 (18:09→20:27)
--- NOTE | 2017-11-15 18:18 | Post Operative Note ---
Date of procedure: 11/15/17 (Dictation: [id number]) Pre-op diagnosis: gastric varices Post-op diagnosis: same Findings: very dense adhesions in lesser sac. Very dense pancreas. Procedure: Open splenectomy Anesthesia: PATRICIA Surgeon: [facility] [employer] Agent: MIKAYLA CRANDALL Estimated blood loss: other (1200cc) Pathology: list (spleen) Specimen disposition: to lab Condition: stable Disposition: PACU
[2017-11-15] MEDS: DILAUDID IV PRN ×4 (19:00→23:51)
[2017-11-15] MEDS ORDERED: NACL 0.9% 1000 ML 1,000 ML ONE (19:47)
[2017-11-15 20:00] LABS: Hematocrit 34.4 % (35.5-45.6); Hemoglobin 11.7 gm/dl (11.8-15.2); Mean Corpuscular HGB Conc 34 % (32-34); Mean Corpuscular Hemoglobin 29 pg (28-32); Mean Corpuscular Volume 84 fl (84-94); Platelet Count 172 K/mm3 (140-440); Red Blood Count 4.09 M/mm3 (3.65-5.03)
[2017-11-15 20:31] LABS: Alanine Aminotransferase 12 units/L (7-56); Albumin 3.6 g/dL (3.9-5); BUN/Creatinine Ratio 12; Blood Urea Nitrogen 11 mg/dL (9-20); Calcium 8.6 mg/dL (8.4-10.2); Hemolysis Index 8
--- NOTE | 2017-11-15 21:29 | Operative Report ---
PREOPERATIVE DIAGNOSES: 1. Gastric varices. 2. Splenic vein thrombosis. POSTOPERATIVE DIAGNOSES: 1. Gastric varices. 2. Splenic vein thrombosis. PROCEDURE: Open splenectomy. ATTENDING PHYSICIAN: Dominic Veliz MD. PATTERN MECHANIC: Dr. Verdugo. ANESTHESIA: General. ESTIMATED BLOOD LOSS: 1200 mL. FLUIDS: 2200 mL crystalloid, 450 mL blood/cell saver 100 mL of 25% albumin. FINDINGS: Very dense adhesions in the left upper quadrant and in the lesser sac, very hard, firm pancreas, and small supple pancreatic pseudocyst was identified. DRAINS: None. COMPLICATIONS: Stable, transferred to recovery. INDICATIONS: This is a 47-year-old male who presented for evaluation of splenectomy after recurrent GI bleeds. The patient was identified to have gastric varices that was felt to be secondary to splenic vein thrombosis. The patient was felt to be appropriate for an open splenectomy. Procedure, risks, benefits, alternatives were discussed. Risks included, but were not limited to infection, bleeding, pain, injury to surrounding structures, possible need for bowel resection, possible need for further procedures in the future. The patient understood and consented. OPERATIVE NOTE: The patient was brought to the operating room after being in the interventional radiology suite for a splenic artery embolization sterile prep and drape was performed after general anesthesia was established, the patient had a TAP block in the holding area. Antibiotics were administered. SCDs were in place. Time-out was called. We began by marking out the left subcostal incision and we extended across the midline to the right in a stick was used for dissection through the subcutaneous tissue and deep to that, we used the LigaSure device for dividing the muscle. We knew the patient with increased risk for bleeding from his varices. Therefore, we made more liberal use of the LigaSure device to minimize bleeding. Minimal adhesions were found above the intestines as we entered the peritoneal cavity, we entered safely. As we entered the lesser sac and dissected out the spleen. It became very apparent that these adhesions within the lesser sac were extremely dense. It was very difficult to identify what was stomach versus colon. We eventually were able to discern the separation, right over the pancreas. The adhesions were almost rock hard. We had to modify our approach multiple times based on what we were able to safely dissect. At times, we are working over the body of the pancreas in the lesser sac. At other times, we were going around the spleen to try to mobilize it. Ultimately what we identified was that the adhesions in the hilum were incredibly hard and dense. The pancreas itself very hard. It was densely adherent in the retroperitoneum. Therefore, we got to a point where I felt to try to remove the pseudocyst which we knew from the prior CT scan was getting smaller. Would only put him at high risk for further bleeding and I was very worried that if we took off a portion of the pancreatic tail that we would not get adequate closure with either sutures or shimon and the patient would have a very high risk for a pancreatic fistula. Our main goal in doing the surgery was to decompress the gastric varices, which requires only the splenectomy. Therefore, I felt the better course would be to complete the splenectomy, decrease the pressure in the gastric varices, and leave the pseudocyst alone, which was resolving on its own and therefore, eliminate the risk of a pancreatic fistula. I discussed this with Dr. Verdugo and she was in agreement. Ultimately, the very dense adhesions we ended up using the LigaSure device to divide. We took great care to make sure that we knew exactly what tissue we were dividing and that we would not be dividing any organs that may be adherent to the spleen. Ultimately in the hilar region, we ended up coming across the hilum and across a portion of the spleen itself. This ended up being the only viable option that we had. So, we came across the hilar vessels with the LigaSure device and a very small rim of splenic tissue that was left behind. The pancreas appeared to be completely intact. We thoroughly evaluated the stomach. There was one small vessel that was bleeding that was controlled with a 3-0 suture ligature. The pancreas as mentioned completely intact. The colon was completely intact. Hemostasis was achieved with a combination of electrocautery, suture ligation, pressure, and hemoblast, which is a hemostatic agent. At the end of precaution, we put thrombin and Gelfoam in one area in the posterior portion of the cavity where the spleen had been removed. It seemed to be more mild oozing rather than any significant vessel; however, I did not want to ignore this and patient potentially have a continuing bleed requiring we take back to the OR. Therefore, we continued on and made sure that at the end, there was no active bleeding and we monitored this for quite a while and at the very end, felt uncomfortable that the patient had no active bleeding. We then proceeded to close the fascia. It was closed in 2 layers using a looped PDS suture. Subcutaneous tissue was thoroughly irrigated and skin was closed with shimon. Skin was clean and dry dressings were placed. The patient tolerated procedure well. Vital signs were normal in the PACU. He was awake, extubated, and breathing comfortably. I spoke with the family in detail. I gave them all the details of surgery. I answered all the questions, they were appreciative. JOB# [id number] NIA/SALLY
[2017-11-15 21:40] LABS: Anisocytosis 1+; Basophils % (Manual) 0 % (0.0-1.8); Eosinophils % (Manual) 0 % (0.0-4.3); Platelet Estimate Consistent w Auto; Poikilocytosis 1+; Total Cells Counted 100
[2017-11-15] MEDS ORDERED: SODIUM CHLORIDE FLUSH SYRINGE 10 ML IV PRN (23:38)
[2017-11-15] MEDS ORDERED: TYLENOL FEEDTUBE PRN (23:38)
[2017-11-15] MEDS: PEPCID IV SCH (23:38)
[2017-11-15] MEDS: SODIUM CHLORIDE FLUSH SYRINGE 10 ML IV SCH (23:38)
[2017-11-16] MEDS: DILAUDID IV PRN ×3 (04:40→12:57)
[2017-11-16 05:30] LABS: Hematocrit 33.9 % (35.5-45.6); Hemoglobin 11.3 gm/dl (11.8-15.2); Lymphocytes # (Auto) 0.8 K/mm3 (1.2-5.4); Lymphocytes % (Auto) 5.2 % (13.4-35.0); Mean Corpuscular HGB Conc 33 % (32-34); Mean Corpuscular Hemoglobin 28 pg (28-32); Mean Corpuscular Volume 84 fl (84-94); Monocytes # (Auto) 0.8 K/mm3 (0.0-0.8); Monocytes % (Auto) 4.9 % (0.0-7.3); Platelet Count 196 K/mm3 (140-440); Red Blood Count 4.02 M/mm3 (3.65-5.03); Red Cell Distribution Width 15.3 % (13.2-15.2)
[2017-11-16 05:47] LABS: BUN/Creatinine Ratio 17; Blood Urea Nitrogen 15 mg/dL (9-20); Calcium 8.5 mg/dL (8.4-10.2); Hemolysis Index 5
--- NOTE | 2017-11-16 07:23 | Post Anesthesia Evaluation ---
- Post Anesthesia Evaluation Patient Participated: Yes Airway Patent: Yes Stable Respiratory Function: Yes Nausea/Vomiting: No Temp > 96.8F: Yes Pain Manageable: Yes Adequeate Hydration: Yes Anesthesia Complications: No Block Receding Appropriately: Not Applicable Patient on Ventilator: No
[2017-11-16] MEDS: NACL 0.9% 1000 ML 1,000 ML IV SCH ×2 (07:58→18:24)
[2017-11-16] MEDS ORDERED: BENADRYL PO PRN (08:19)
--- NOTE | 2017-11-16 10:01 | Progress Note ---
Assessment and Plan - Patient Problems (1) Varices, gastric Current Visit: No Status: Acute Plan to address problem: Pt stable - s/p open splenectomy - 11/15 POD#1. A/P: Neuro - no issues. alert and oriented CV - tachycardia appears to be pain related. Order ECHOCARDIOGRAPHY TECH for better pain control Pulm - encourage use of IS. OOB to chair GI - clamp NGT - minimal output and no symptoms. Start sips of clears. Possibly remove NGT later today. Remove dressings tomorrow. - pichardo out this AM Heme- Lovenox this evening. CBC in AM ID - no issues. Leukocytosis is reactive to surgery and splenectomy Dispo - transfer to [facility]. Discussed with Dr. Sanders. Time=15min Subjective Date of service: 11/16/17 Patient Reports: Positive: still having pain, other (tolerating ice chips). Negative: nausea, vomiting, shortness of breath Objective Vital Signs - 12hr 11/15/17 11/15/17 11/15/17 22:00 22:15 22:30 Temperature Pulse Rate 109 H 109 H 106 H Respiratory 14 9 L 11 L Rate Blood Pressure 136/79 131/76 121/79 O2 Sat by Pulse 98 98 98 Oximetry 11/15/17 11/15/17 11/15/17 22:45 23:00 23:15 Temperature Pulse Rate 109 H 104 H 104 H Respiratory 11 L 11 L 10 L Rate Blood Pressure 127/78 138/83 130/92 O2 Sat by Pulse 98 98 98 Oximetry 11/15/17 11/15/17 11/15/17 23:30 23:43 23:45 Temperature Pulse Rate 124 H 101 H 100 H Respiratory 16 10 L 11 L Rate Blood Pressure 142/94 142/94 140/86 O2 Sat by Pulse 99 98 98 Oximetry 11/16/17 11/16/17 11/16/17 00:00 00:02 00:30 Temperature 98.9 F Pulse Rate 97 H 101 H 104 H Respiratory 11 L 10 L 10 L Rate Blood Pressure 136/82 136/82 125/74 O2 Sat by Pulse 98 98 98 Oximetry 11/16/17 11/16/17 11/16/17 01:00 01:30 02:00 Temperature Pulse Rate 103 H 103 H 102 H Respiratory 10 L 10 L 11 L Rate Blood Pressure 125/74 133/79 134/80 O2 Sat by Pulse 99 99 99 Oximetry 11/16/17 11/16/17 11/16/17 02:30 03:00 03:30 Temperature Pulse Rate 99 H 95 H 99 H Respiratory 12 12 11 L Rate Blood Pressure 134/80 128/68 137/82 O2 Sat by Pulse 99 98 98 Oximetry 11/16/17 11/16/17 11/16/17 04:00 04:30 05:00 Temperature 98.8 F Pulse Rate 99 H 101 H 133 H Respiratory 11 L 16 19 Rate Blood Pressure 146/85 137/78 154/97 O2 Sat by Pulse 99 98 98 Oximetry 11/16/17 11/16/17 11/16/17 05:30 06:00 08:00 Temperature 98.6 F Pulse Rate 101 H 100 H Respiratory 12 14 Rate Blood Pressure 147/83 158/84 O2 Sat by Pulse 98 99 98 Oximetry - General physical appearance no distress, moderate pain - Eyes normal occular movement - Respiratory normal expansion, normal respiratory effort - Abdomen soft, tender (appropriate. no tenderness in lower abdomen), bowel sounds hypoactive, not distended, not guarding, not rigid, other (dressing with minimal drainage) - Integumentary no rash, no growths, no abnormal pigmentation - Psychiatric oriented to time, oriented to person, oriented to place, speech is normal, memory intact - Labs 11/16/17 04:12 11/16/17 04:12 Diabetes panel 11/15/17 11/16/17 Range/Units 19:43 04:12 Sodium 138 137 (137-145) mmol/L Potassium 4.9 5.1 H (3.6-5.0) mmol/L Chloride 101.6 98.9 (98-107) mmol/L Carbon Dioxide 24 24 (22-30) mmol/L BUN 11 15 (9-20) mg/dL Creatinine 0.9 0.9 (0.8-1.5) mg/dL Glucose 247 H 282 H (75-100) mg/dL Calcium 8.6 8.5 (8.4-10.2) mg/dL AST 18 (5-40) units/L ALT 12 (7-56) units/L Alkaline Phosphatase 53 (35-129) units/L Total Protein 5.9 L (6.3-8.2) g/dL Albumin 3.6 L (3.9-5) g/dL Calcium panel 11/15/17 11/16/17 Range/Units 19:43 04:12 Calcium 8.6 8.5 (8.4-10.2) mg/dL Albumin 3.6 L (3.9-5) g/dL Pituitary panel 11/15/17 11/16/17 Range/Units 19:43 04:12 Sodium 138 137 (137-145) mmol/L Potassium 4.9 5.1 H (3.6-5.0) mmol/L Chloride 101.6 98.9 (98-107) mmol/L Carbon Dioxide 24 24 (22-30) mmol/L BUN 11 15 (9-20) mg/dL Creatinine 0.9 0.9 (0.8-1.5) mg/dL Glucose 247 H 282 H (75-100) mg/dL Calcium 8.6 8.5 (8.4-10.2) mg/dL Adrenal panel 11/15/17 11/16/17 Range/Units 19:43 04:12 Sodium 138 137 (137-145) mmol/L Potassium 4.9 5.1 H (3.6-5.0) mmol/L Chloride 101.6 98.9 (98-107) mmol/L Carbon Dioxide 24 24 (22-30) mmol/L BUN 11 15 (9-20) mg/dL Creatinine 0.9 0.9 (0.8-1.5) mg/dL Glucose 247 H 282 H (75-100) mg/dL Calcium 8.6 8.5 (8.4-10.2) mg/dL Total Bilirubin 1.00 (0.1-1.2) mg/dL AST 18 (5-40) units/L ALT 12 (7-56) units/L Alkaline Phosphatase 53 (35-129) units/L Total Protein 5.9 L (6.3-8.2) g/dL Albumin 3.6 L (3.9-5) g/dL
[2017-11-16] MEDS: DILAUDID PCA 6MG/30ML IV SCH ×2 (10:37→18:25)
[2017-11-16] MEDS: PEPCID IV SCH ×2 (10:41→22:27)
[2017-11-16] MEDS: SENOKOT S PO SCH ×2 (10:41→22:26)
[2017-11-16] MEDS: SODIUM CHLORIDE FLUSH SYRINGE 10 ML IV SCH ×2 (10:42→22:27)
[2017-11-16] MEDS ORDERED: NORCO 5/325 PO PRN (12:57)
--- NOTE | 2017-11-16 12:57 | Event Note ---
Date: 11/16/17 Routine f/u. Pt looks very good. Has been transferred to [facility]. Developed a lot of pain when asked to walk from transport bed to room bed. No N/V. Tolerating sips. No other problems. - give bolus of dilaudid - encouraged PO pain pills - adv to clear liquid diet - IS
[2017-11-16] MEDS: LOVENOX SUB-Q SCH (22:26)
[2017-11-17] MEDS: DILAUDID PCA 6MG/30ML IV SCH ×4 (00:40→22:31)
[2017-11-17 04:45] LABS: Hematocrit 28.2 % (35.5-45.6); Hemoglobin 9.3 gm/dl (11.8-15.2)
[2017-11-17] MEDS: NACL 0.9% 1000 ML 1,000 ML IV SCH (06:37)
[2017-11-17] MEDS: DILAUDID IV PRN (07:51)
--- NOTE | 2017-11-17 08:25 | Progress Note ---
Assessment and Plan - Patient Problems (1) Varices, gastric Current Visit: No Status: Acute Plan to address problem: Pt stable - s/p open splenectomy - 11/15 POD#2. A/P: Neuro - no issues. alert and oriented CV - resolved. Pulm - encourage use of IS. OOB to chair GI - Advance to soft diet - carb consistent. Start insulin SS. Resume glipizide. Hold metformin for now until tolerate soft diet. - pichardo out Heme- Lovenox Prophylaxis. REcheck H/H this afternoon. Drop may be dilutional as hemodynamics are improved. Would expect HR to be rising if he were actively bleeding. ID - no issues. Leukocytosis is reactive to surgery and splenectomy. No fevers. Pain Control - hold on methadone for now. Will restart oxycodone Activity - encourage OOB to chair. Dispo - anticipate eventual d/c to home when ready. Time=15min Subjective Date of service: 11/17/17 Patient Reports: Positive: no new complaints, still having pain (but FLATWORK FOLDER helping. No increase), tolerating liquids well, no flatus, no bowel movement. Negative: nausea, vomiting, shortness of breath Objective Vital Signs - 12hr 11/16/17 11/17/17 11/17/17 23:28 05:02 08:06 Temperature 98.4 F 98.0 F 98.3 F Pulse Rate 91 H 83 97 H Respiratory 20 20 18 Rate Blood Pressure 123/68 118/73 151/91 O2 Sat by Pulse 92 93 94 Oximetry - General physical appearance no distress, no pain, other (appears very comfortable sitting up in bed watching TV) - Eyes normal occular movement - Respiratory normal expansion, normal respiratory effort - Abdomen soft, tender (mainly on left side. No generalized peritonitis), bowel sounds normal, not distended, not guarding, not rigid, surgical scars (C/D/I) - Psychiatric oriented to time, oriented to person, oriented to place, speech is normal, memory intact - Labs 11/17/17 04:21 11/16/17 04:12
[2017-11-17] MEDS ORDERED: D50W (25GM) Syringe IV PRN (09:00)
[2017-11-17] MEDS: SENOKOT S PO SCH ×2 (09:44→22:06)
[2017-11-17] MEDS: GLUCOTROL PO SCH ×2 (09:49→19:21)
[2017-11-17] MEDS: SODIUM CHLORIDE FLUSH SYRINGE 10 ML IV SCH ×2 (09:51→22:48)
[2017-11-17] MEDS: HumuLIN R SUB-Q SCH ×3 (11:59→22:46)
[2017-11-17 16:47] LABS: Hematocrit 28.9 % (35.5-45.6); Hemoglobin 9.5 gm/dl (11.8-15.2)
--- NOTE | 2017-11-17 17:52 | Event Note ---
Date: 11/17/17 Routine recheck- Due to his hemoglobin being lower in the morning, I wanted to make sure he was doing okay. Patient looks very good. He was sitting up. He was watching TV and in no acute distress. He looks very comfortable. He reports that he tolerated his diet. His pain comes and goes, but it is no worse than this morning. He feels well. Repeat Hgb was stable at 9.5. CPM. Dr. Verdugo will see him this weekend for me. He is aware.
[2017-11-17] MEDS: ROXICODONE PO PRN (21:22)
[2017-11-17] MEDS: LOVENOX SUB-Q SCH (21:22)
[2017-11-18] MEDS: ROXICODONE PO PRN ×2 (04:38→10:19)
[2017-11-18 04:44] LABS: Hematocrit 27.8 % (35.5-45.6); Hemoglobin 9.5 gm/dl (11.8-15.2)
[2017-11-18] MEDS: APRESOLINE IV PRN ×2 (06:19→22:03)
[2017-11-18] MEDS: HumuLIN R SUB-Q SCH ×3 (08:00→18:58)
[2017-11-18] MEDS: SODIUM CHLORIDE FLUSH SYRINGE 10 ML IV SCH ×2 (10:00→22:11)
[2017-11-18] MEDS: SENOKOT S PO SCH ×2 (10:20→22:03)
[2017-11-18] MEDS: GLUCOTROL PO SCH ×2 (10:21→18:59)
--- NOTE | 2017-11-18 14:14 | Progress Note ---
Assessment and Plan (1) Varices, gastric Current Visit: No Status: Acute Plan to address problem: s/p open splenectomy - 11/15 POD#3. Plan: 1. soft diet, consistent carb 2. IVF @ 30cc/hr 3. Hb stable 4. BP high despite pain control, will restart lisinopril 5mg daily 5. Blood sugars remain elevated despite ISS and glipizide, will restart metformin and monitor 6. continue pain control - oxycodone and will wean LEGAL PARAPROFESSIONAL 7. encouraged OOB/ambulation 8. DVT ppx Subjective Date of service: 11/18/17 Narrative: Pt seen and examined. States he feels better today. No f/c, n/v. Abdominal pain is controlled with PO and IV pain medications. He is not using the LEGAL PARAPROFESSIONAL much. He has gotten OOB to bathroom. He is tolerating a soft diet. Objective Vital Signs - 12hr 11/18/17 11/18/17 11/18/17 03:31 04:30 04:38 Temperature 99.3 F Pulse Rate 102 H Respiratory 17 20 17 Rate Blood Pressure 186/103 Blood Pressure [Left] O2 Sat by Pulse 94 Oximetry 11/18/17 11/18/17 11/18/17 05:31 05:38 06:19 Temperature Pulse Rate 104 H Respiratory 17 17 Rate Blood Pressure 171/99 Blood Pressure [Left] O2 Sat by Pulse Oximetry 11/18/17 11/18/17 11/18/17 07:30 08:50 11:59 Temperature 98.9 F 99.9 F H Pulse Rate 102 H 103 H Respiratory 18 18 Rate Blood Pressure Blood Pressure 155/81 186/99 [Left] O2 Sat by Pulse 95 94 96 Oximetry - General physical appearance Narrative Exam: Gen: AAOx3. NAD CV: S1, S2+ resp: even and unlabored Abd: soft, ND, TTP LUQ. Incision c/d/i Ext: no c/c/e - Labs 11/18/17 04:19 11/16/17 04:12
[2017-11-18] MEDS: NACL 0.9% 1000 ML 1,000 ML IV SCH (14:37)
[2017-11-18] MEDS: ZESTRIL PO SCH (18:59)
[2017-11-18] MEDS: GLUCOPHAGE PO SCH (18:59)
[2017-11-18] MEDS: INDERAL PO SCH (22:03)
[2017-11-18] MEDS: LOVENOX SUB-Q SCH (22:03)
[2017-11-18] MEDS ORDERED: LOPRESSOR IV ONE (22:43)
[2017-11-19] MEDS: GLUCOPHAGE PO SCH ×2 (08:17→16:59)
[2017-11-19] MEDS: GLUCOTROL PO SCH ×2 (08:18→16:59)
[2017-11-19] MEDS: HumuLIN R SUB-Q SCH ×3 (08:18→17:43)
[2017-11-19] MEDS: DILAUDID PCA 6MG/30ML IV SCH (08:22)
[2017-11-19] MEDS: INDERAL PO SCH ×2 (10:38→21:15)
[2017-11-19] MEDS: ZESTRIL PO SCH (10:38)
--- NOTE | 2017-11-19 12:05 | Progress Note ---
Assessment and Plan (1) Varices, gastric Current Visit: No Status: Acute Plan to address problem: s/p open splenectomy - 11/15 POD#4 Plan: 1. soft diet, consistent carb 2. IVF @ 30cc/hr 3. Hb stable, CBC today pending - will follow up 4. BP improved with addition of lisinopril and propanolol 5. Blood sugars improved with addition of metformin. 6. 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 encouraged OOB/ambulation 8. DVT ppx Subjective Date of service: 11/19/17 Narrative: Pt seen and examined. No overnight events. c/o incisional pain but slowly improving. 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 + BM and flatus. Tolerating diet with some improvement in appetite. Afebrile. Objective Vital Signs - 12hr 11/19/17 11/19/17 11/19/17 00:10 04:37 07:48 Temperature 99.5 F 98.5 F 98.5 F Pulse Rate 100 H 98 H 96 H Respiratory 17 17 16 Rate Blood Pressure 172/95 135/73 126/75 O2 Sat by Pulse 95 98 96 Oximetry 11/19/17 11:54 Temperature 99.6 F Pulse Rate 91 H Respiratory Rate Blood Pressure 150/94 O2 Sat by Pulse 96 Oximetry - Labs 11/18/17 04:19 11/16/17 04:12
[2017-11-19] MEDS: SENOKOT S PO SCH ×2 (12:33→21:15)
[2017-11-19 12:55] LABS: Hematocrit 28.1 % (35.5-45.6); Hemoglobin 9.3 gm/dl (11.8-15.2); Mean Corpuscular HGB Conc 33 % (32-34); Mean Corpuscular Hemoglobin 28 pg (28-32); Mean Corpuscular Volume 85 fl (84-94); Platelet Count 300 K/mm3 (140-440); Red Blood Count 3.31 M/mm3 (3.65-5.03); Red Cell Distribution Width 14.7 % (13.2-15.2)
[2017-11-19] MEDS: ROXICODONE PO PRN (17:40)
[2017-11-19] MEDS: APRESOLINE IV PRN (17:41)
[2017-11-19] MEDS: SODIUM CHLORIDE FLUSH SYRINGE 10 ML IV SCH (20:54)
[2017-11-19] MEDS: LOVENOX SUB-Q SCH (21:15)
[2017-11-20] MEDS: SODIUM CHLORIDE FLUSH SYRINGE 10 ML IV SCH ×3 (01:30→21:11)
[2017-11-20] MEDS: NACL 0.9% 1000 ML 1,000 ML IV SCH (01:34)
[2017-11-20] MEDS: ROXICODONE PO PRN ×2 (01:38→21:03)
[2017-11-20] MEDS: GLUCOPHAGE PO SCH ×2 (09:23→17:00)
[2017-11-20] MEDS: HumuLIN R SUB-Q SCH ×3 (09:23→16:59)
[2017-11-20] MEDS: SENOKOT S PO SCH ×2 (09:23→21:10)
[2017-11-20] MEDS: GLUCOTROL PO SCH ×2 (09:24→17:00)
[2017-11-20] MEDS: INDERAL PO SCH ×2 (09:24→21:05)
[2017-11-20] MEDS: ZESTRIL PO SCH (09:24)
[2017-11-20] MEDS: DILAUDID IV PRN ×3 (09:45→16:59)
--- NOTE | 2017-11-20 14:49 | Progress Note ---
Assessment and Plan - Patient Problems (1) Varices, gastric Current Visit: No Status: Acute Plan to address problem: Pt stable - s/p open splenectomy - 11/15 POD#5. A/P: Neuro - no issues. alert and oriented CV - resolved. Pulm - encourage use of IS. Ambulating GI - Tolerating soft diet. BG good. Back on normal DM meds. - pichardo out Heme- Lovenox Prophylaxis. Hgb stable. ID - no issues. Leukocytosis is reactive. Resolved now. Pain Control - hold on methadone for now. Continue oxycodone. 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 He will talk to Maryjo as an out-pt about methadone. Activity - continue ambulating Dispo - anticipate eventual d/c to home - possibly tomorrow. Time=15min Subjective Date of service: 11/20/17 Patient Reports: Positive: no new complaints, feels better, pain is less, tolerating a regular diet, bowel movement. Negative: nausea, vomiting Objective Vital Signs - 12hr 11/20/17 11/20/17 11/20/17 04:22 04:31 06:22 Temperature Pulse Rate Respiratory 18 18 18 Rate Blood Pressure Blood Pressure [Left] O2 Sat by Pulse Oximetry 11/20/17 11/20/17 11/20/17 06:31 07:00 09:24 Temperature 98.1 F Pulse Rate 83 83 Respiratory 18 18 Rate Blood Pressure 136/79 Blood Pressure 136/79 [Left] O2 Sat by Pulse 97 Oximetry 11/20/17 11:52 Temperature 99.9 F H Pulse Rate 84 Respiratory 18 Rate Blood Pressure Blood Pressure 162/93 [Left] O2 Sat by Pulse 99 Oximetry - General physical appearance no distress, no pain, other (looks well) - Eyes normal occular movement - Respiratory normal expansion, normal respiratory effort - Abdomen soft, tender (less in left flank. mild in pelvic area and right flank), not distended, not guarding, not rigid, surgical scars (C/D/I) - Integumentary no rash, no growths, no abnormal pigmentation - Psychiatric oriented to time, oriented to person, oriented to place, speech is normal, memory intact - Labs 11/19/17 12:12 11/16/17 04:12
[2017-11-20] MEDS: LOVENOX SUB-Q SCH (21:03)
[2017-11-21 07:41] VITALS: BP 156/84
[2017-11-21] MEDS: HumuLIN R SUB-Q SCH (07:57)
[2017-11-21] MEDS: GLUCOTROL PO SCH (07:58)
[2017-11-21] MEDS: ZESTRIL PO SCH ×2 (07:58→10:00)
[2017-11-21] MEDS: GLUCOPHAGE PO SCH (07:59)
[2017-11-21] MEDS: INDERAL PO SCH ×2 (08:00→10:00)
[2017-11-21] MEDS: SENOKOT S PO SCH ×2 (08:00→10:00)
--- NOTE | 2017-11-21 08:56 | Discharge Summary ---
Providers - Providers Date of Admission: 11/15/17 11:39 Date of discharge: 11/21/17 Attending physician: CLIFTON DELATORRE MD Primary care physician: SPEED RUNNER Hospitalization Reason for admission: scheduled surgery Condition: Stable Pertinent studies: CT abdomen Procedures: Open Splenectomy Hospital course: Uneventful. Due to a prolonged surgery and significant blood loss, patient was observed in the ICU overnight. There were no events. He was transferred to the regular floor in the morning. We were able to advance his diet without difficulty. There were no cardiopulmonary complications. No wound complications. Patient was tolerating a diet and ambulating safely at the time of discharge. Disposition: DC-01 TO HOME OR SELFCARE Time spent for discharge: 30min - Discharge Diagnoses (1) Varices, gastric Status: Acute Core Measure Documentation - Palliative Care Palliative Care/ Comfort Measures: Not Applicable - Core Measures Any of the following diagnoses?: none - VTE Discharge Requirements Deep Vein Thrombosis/Pulmonary Embolism Present on Admission: No - Acute KS Discharge Requirements Aspirin at discharge: No Reason for no aspirin on DC: Medical contraindication (No KS at time of discharge. h/o GI bleed) ZOË/ARB for LVSD if EF <40%: Not Applicable Statin for LDL = or >100 mg/dl on DC: Not Applicable - Heart Failure Discharge Requirements ZOË/ARB for LVSD if EF <40%: Not Applicable - Stroke Discharge Requirements Statin for LDL = or >70 mg/dl on DC: Not Applicable Exam - Constitutional Vitals: Temp Pulse Resp BP Pulse Ox 97.6 F 95 H 18 156/84 100 11/21/17 07:37 11/21/17 08:00 11/21/17 07:37 11/21/17 08:00 11/21/17 07:37 General appearance: Present: no acute distress, well-nourished, other (looks very good) - EENT Eyes: Present: EOM intact - Respiratory Respiratory effort: normal - Cardiovascular Rhythm: regular - Abdominal General gastrointestinal: Present: soft, tender (minimal - as expected), non- distended, normal bowel sounds. Absent: rigid, hernia - Integumentary Integumentary: Present: clear, warm, dry - Psychiatric Psychiatric: appropriate mood/affect, intact judgment & insight - Neurologic Neurologic: CNII-XII intact, moves all extremities Plan Activity: no driving until cleared by PCP Diet: diabetic Wound: open to air, keep clean and dry, other (May shower. Pat dry wounds. ) Special Instructions: no heavy lifting (or strenuous activity for 6 weeks) Follow up with: PRIMARY MD CECE [Primary Care Provider] - 7 Days CLIFTON DELATORRE MD [Staff Physician] - 14 Days Prescriptions: oxyCODONE [Roxicodone TAB] 10 mg PO Q4H PRN #30 tablet PRN Reason: Pain, Moderate (4-6) Sennosides/Docusate [Senokot S] 1 tab PO BID #30 tablet
[2017-11-21] MEDS: SODIUM CHLORIDE FLUSH SYRINGE 10 ML IV SCH (10:00)
== END 2017-11-21 11:49 | disposition home or self-care (01) | DRG 278 ==
LOC: OR 11:37 → 3A 11:39 → CC1 18:56 → 3B-SURG 11-16 12:15
PROVIDERS: ADMIT Surgery; ATTEND Surgery
PROC: 04L43DZ Occlusion of Splenic Artery with Intraluminal Device, Percutaneous Approach (ICD-10-PCS; principal; 2017-11-15)
PROC: 07BP0ZZ Excision of Spleen, Open Approach (ICD-10-PCS; 2017-11-15)
PROC: 0FNG0ZZ Release Pancreas, Open Approach (ICD-10-PCS; 2017-11-15)
PROC: B4131ZZ Fluoroscopy of Splenic Arteries using Low Osmolar Contrast (ICD-10-PCS; 2017-11-15)
PROC: B44 Imaging, Lower Arteries, Ultrasonography (ICD-10-PCS; 2017-11-15)
DX: I82.890 Acute embolism and thrombosis of other specified veins (principal); I74.8 Embolism and thrombosis of other arteries; K86.0 Alcohol-induced chronic pancreatitis; I86.4 Gastric varices; D72.829 Elevated white blood cell count, unspecified; K21.9 Gastro-esophageal reflux disease without esophagitis; E11.9 Type 2 diabetes mellitus without complications; R16.1 Splenomegaly, not elsewhere classified; K66.0 Peritoneal adhesions (postprocedural) (postinfection); Z80.1 Family history of malignant neoplasm of trachea, bronchus and lung
CPT/HCPCS: 36415; 37243; 64450; 80048; 80053; 82962; 85007; 85014; 85018; 85025; 85027; 85610; 85730; 86850; 86900; 86901; 88305; 94760; A4649; C1760; C1769; C1887; J0330; J0360; J0690; J1100; J1170; J1644; J1650; J1815; J2250; J2370; J2704; J2710; J3010; J7030; P9047; Q9967

== ENCOUNTER 2018-05-01 09:36 | Day surgery (SDC) | payer MEDICAID ==
--- NOTE | 2018-05-01 10:44 | Anesthesia Day of Surgery ---
Anesthesia Day of Surgery - Day of Surgery Patient Examined: Yes Patient H&P Reviewed: Yes Patient is NPO: Yes Beta Blockers: No
--- NOTE | 2018-05-01 10:45 | Anesthesia Consultation ---
Anesthesia Consult and Med Hx Date of service: 05/01/18 - Airway Anesthetic Teeth Evaluation: Good ROM Head & Neck: Adequate Mental/Hyoid Distance: Adequate Mallampati Class: Class III Intubation Access Assessment: Probably Good - Pulmonary Exam CTA: Yes - Cardiac Exam Cardiac Exam: No Murmur - Pre-Operative Health Status ASA Pre-Surgery Classification: ASA3 Proposed Anesthetic Plan: MAC - Pulmonary Hx Smoking: No Hx Asthma: No COPD: No Hx Pneumonia: No Hx Sleep Apnea: No - Cardiovascular System Hx Hypertension: Yes - Central Nervous System Hx Psychiatric Problems: No - Gastrointestinal Hx Gastroesophageal Reflux Disease: Yes (hx of esophageal varices) - Endocrine Hx End Stage Renal Disease: Yes Hx Liver Disease: Yes (probable given hx of EtOH abuse in the past; hx of recurrent pancreatitis) Hx Non-Insulin Dependent Diabetes: Yes - Other Systems 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
[2018-05-01] MEDS ORDERED: DIPRIVAN 10 MG/ML IV ONE (10:52)
[2018-05-01] MEDS ORDERED: VERSED ONE (10:52)
[2018-05-01] MEDS ORDERED: NACL 0.9% 1000 ML 1,000 ML IV SCH (11:00)
--- NOTE | 2018-05-01 11:18 | Short Stay Summary ---
Short Stay Documentation Date of service: 05/01/18 Narrative H&P: The patient presents for EGD in follow up of gastric and esophageal varices. He is status post splenectomy following UGI bleeding events. - History Past Medical History: diabetes, other (chronic pancreatitis, splenic vein thrombosis, gastric and esophageal varices.) Past Surgical History: Other (splenectomy, GB surgery) Social history: no significant social history, , Lives alone, no smoking, no alcohol abuse, no prescription drug abuse - Allergies and Medications Current Medications: Allergies No Known Allergies Allergy (Verified 11/08/17 14:48) Home Medications Medication Instructions Recorded Confirmed Last Taken Type Methadone [Dolophine] 10 mg PO Q12H 11/08/17 05/01/18 04/30/18 History glipiZIDE [Glucotrol] 5 mg PO BID 11/08/17 05/01/18 04/30/18 History metFORMIN [Glucophage] 500 mg PO BID 11/08/17 05/01/18 04/30/18 History oxyCODONE [Roxicodone TAB] 10 mg PO Q4H PRN #30 tablet 11/21/17 05/01/18 04/30/18 Rx Lisinopril [Zestril TAB] 25 mg PO QDAY 05/01/18 05/01/18 04/30/18 History Active Medications Sodium Chloride (Nacl 0.9% 1000 Ml) 1,000 mls @ 50 mls/hr IV DIRECT ROBERTH Last Admin: 05/01/18 10:52 Dose: 50 mls/hr Documented by: - Physical exam General appearance: no acute distress, well-nourished Integumentary: no rash, no growths, no abnormal pigmentation HEENT: Atraumatic, PERRLA, EOMI, Mucous membr. moist/pink Lungs: Clear to auscultation Breasts: deferred Heart: Regular rate, Normal S1, Normal S2, No murmurs Gastrointestinal: normal, no tenderness, no distended, no masses, no guarding, no organomegaly Male Genitourinary: deferred Rectal Exam: deferred Extremities: no ischemia, pulses intact, pulses symmetrical, No edema, normal temperature, normal color, Full ROM Neurological: Normal gait, Normal speech, Strength at 5/5 X4 ext, Normal tone, Sensation intact, Cranial nerves 3-12 NL - Brief post op/procedure progress note Date of procedure: 05/01/18 Findings: see dictated report Estimated blood loss: none Pathology: none Condition: stable - Disposition Condition at discharge: Good Disposition: DC-01 TO HOME OR SELFCARE - Discharge Diagnoses (1) Esophageal and gastric varices Status: Acute Short Stay Discharge Plan Activity: other (no driving for 24 hours) Diet: diabetic Follow up with: PRIMARY CARE, [Primary Care Provider] - 7 Days
--- NOTE | 2018-05-01 11:22 | Operative Report ---
Operative Report Operative Report: Date of procedure: 05/01/2018 Procedure: Esophagogastroduodenoscopy Preprocedure diagnosis:. History of gastric and esophageal varices. Status post splenectomy for recurrent gastric variceal bleeding. Post procedure diagnosis: 2+ gastric varices, smaller by appearance. 0-1+ esophageal varices. Endoscopist: Dr. Sibley Anesthesia: Monitored anesthesia care per anesthesia department Medications: Propofol per anesthesia Estimated blood loss: 0 After careful discussion of the nature and purpose of the procedure as well as details the technique risks benefits and alternatives consent was obtained. The patient was placed in the left lateral decubitus position and medicated per anesthesia. The tip of the [employer] EQ 570 video scope was passed per orum under direct vision into the esophagus and advanced into the stomach and descending duodenum. The descending duodenum the duodenal bulb and pylorus were symmetrical and normal. The scope was withdrawn into the stomach and the stomach then gently insufflated with air. The antrum was normal. The stomach was further insufflated and the scope was then retroflexed and partially withdrawn. The cardia revealed 1+ varices in the fundus revealed 2+ varices. They appeared overall smaller than on the previous study. Body of the stomach revealed mild vascular congestion consistent with portal hypertension gastropathy. The stomach was easily distensible. The scope was then withdrawn in the forward position. The esophagogastric junction was at 2 cm. 0-1+ varices were present in the distal esophagus. The esophageal body was otherwise normal throughout. The procedure was was well tolerated and the patient was observed in recovery. Impressions: 0-1+ esophageal varices. 2+ gastric varices, improved by appearance overall but still present. Plan: Repeat endoscopy in one year. Electronically signed: Thong Sibley MD
[2018-05-01] MEDS ORDERED: WATER FOR IRRIG STERILE IR ONE (11:26)
[2018-05-01 12:13] VITALS: BP 138/85
== END 2018-05-01 09:37 | disposition home or self-care (01) ==
LOC: GIO 09:36
PROVIDERS: ATTEND Internal Medicine Gastroenterology
DX: I85.00 Esophageal varices without bleeding (principal); I86.4 Gastric varices; K21.9 Gastro-esophageal reflux disease without esophagitis; I12.0 Hypertensive chronic kidney disease with stage 5 chronic kidney disease or end stage renal disease; E11.22 Type 2 diabetes mellitus with diabetic chronic kidney disease; N18.6 End stage renal disease; M19.90 Unspecified osteoarthritis, unspecified site; Z98.890 Other specified postprocedural states; Z79.899 Other long term (current) drug therapy; Z79.84 Long term (current) use of oral hypoglycemic drugs; Z90.49 Acquired absence of other specified parts of digestive tract; Z87.442 Personal history of urinary calculi
CPT/HCPCS: 43235; 82962; J2250; J2704; J7030

== ENCOUNTER 2018-11-27 07:44 | Emergency (ER) | payer MEDICAID ==
[2018-11-27 08:09] LABS: Basophils % (Auto) 0.6 % (0.0-1.8); Eosinophils # (Auto) 0.1 K/mm3 (0.0-0.4); Eosinophils % (Auto) 2.4 % (0.0-4.3); Hematocrit 39.3 % (35.5-45.6); Hemoglobin 13.1 gm/dl (11.8-15.2); Lymphocytes # (Auto) 2.4 K/mm3 (1.2-5.4); Lymphocytes % (Auto) 41.6 % (13.4-35.0); Mean Corpuscular HGB Conc 33 % (32-34); Mean Corpuscular Volume 89 fl (84-94); Monocytes # (Auto) 0.5 K/mm3 (0.0-0.8); Monocytes % (Auto) 8.5 % (0.0-7.3); Platelet Count 284 K/mm3 (140-440); Red Blood Count 4.44 M/mm3 (3.65-5.03); Red Cell Distribution Width 13.9 % (13.2-15.2)
[2018-11-27 08:26] LABS: Alanine Aminotransferase 20 units/L (7-56); Albumin 4.6 g/dL (3.9-5); BUN/Creatinine Ratio 16; Blood Urea Nitrogen 11 mg/dL (9-20); Calcium 8.9 mg/dL (8.4-10.2); Hemolysis Index 10
[2018-11-27 08:38] LABS: Bilirubin,Urine NEG (Negative); Blood,Urine NEG (Negative); Color,Urine Yellow (Yellow); Protein,Urine <15 mg/dL mg/dL (Negative); Urobilinogen,Urine < 2.0 mg/dL (<2.0); WBC,Urine < 1.0 /HPF (0.0-6.0)
--- NOTE | 2018-11-27 08:58 | Emergency Department Report ---
ED Abdominal Pain HPI - General Chief Complaint: Abdominal Pain Stated Complaint: BACK/R LEG PAIN/N/V Time Seen by Provider: 11/27/18 08:50 Source: patient Mode of arrival: Ambulatory Limitations: No Limitations - Related Data Home Medications Medication Instructions Recorded Confirmed Last Taken Methadone [Dolophine] 10 mg PO Q12H 11/08/17 05/01/18 04/30/18 glipiZIDE [Glucotrol] 5 mg PO BID 11/08/17 05/01/18 04/30/18 metFORMIN [Glucophage] 500 mg PO BID 11/08/17 05/01/18 04/30/18 Lisinopril [Zestril TAB] 25 mg PO QDAY 05/01/18 05/01/18 04/30/18 Previous Rx's Medication Instructions Recorded Last Taken Type oxyCODONE [roxiCODONE] 10 mg PO Q4H PRN #30 tablet 11/21/17 04/30/18 Rx Allergies Allergy/AdvReac Type Severity Reaction Status Date / Time No Known Allergies Allergy Verified 11/08/17 14:48 ED Review of Systems ROS: Stated complaint: BACK/R LEG PAIN/N/V Other details as noted in HPI ED Past Medical Hx - Past Medical History Previous Medical History?: Yes Hx Hypertension: Yes Hx Congestive Heart Failure: No Hx Diabetes: Yes Hx GERD: Yes Hx Liver Disease: Yes (probable given hx of EtOH abuse in the past; hx of rec urrent pancreatitis) Hx Arthritis: Yes Hx Kidney Stones: Yes (PASSED) Hx Asthma: No Hx COPD: No Hx HIV: No Additional medical history: Pancretitis - Surgical History Past Surgical History?: Yes Hx Cholecystectomy: Yes () Additional Surgical History: left ankle. spleenectomy - Social History Smoking Status: Never Smoker Substance Use Type: None - Medications Home Medications: Home Medications Medication Instructions Recorded Confirmed Last Taken Type Methadone [Dolophine] 10 mg PO Q12H 11/08/17 05/01/18 04/30/18 History glipiZIDE [Glucotrol] 5 mg PO BID 11/08/17 05/01/18 04/30/18 History metFORMIN [Glucophage] 500 mg PO BID 11/08/17 05/01/18 04/30/18 History oxyCODONE [roxiCODONE] 10 mg PO Q4H PRN #30 tablet 11/21/17 05/01/18 04/30/18 Rx Lisinopril [Zestril TAB] 25 mg PO QDAY 05/01/18 05/01/18 04/30/18 History ED Physical Exam - General Limitations: No Limitations ED Course Vital Signs 11/27/18 07:45 Temperature 98.2 F Pulse Rate 76 Respiratory 16 Rate Blood Pressure 184/110 O2 Sat by Pulse 100 Oximetry ED Medical Decision Making - Lab Data Result diagrams: 11/27/18 07:59 11/27/18 07:59 Critical care attestation.: If time is entered above; I have spent that time in minutes in the direct care of this critically ill patient, excluding procedure time. ED Disposition Condition: Stable
[2018-11-27] MEDS ORDERED: KETOROLAC 30 MG/1 ML INJ IV ONE (09:16)
[2018-11-27] MEDS ORDERED: KETOROLAC 60 MG/2 ML INJ IM ONE (09:40)
[2018-11-27 10:04] VITALS: BP 163/93
--- NOTE | 2018-11-27 10:08 | Emergency Department Report ---
ED General Adult HPI - General Chief complaint: Abdominal Pain Stated complaint: BACK/R LEG PAIN/N/V Time Seen by Provider: 11/27/18 08:50 Source: patient Mode of arrival: Ambulatory Limitations: No Limitations - History of Present Illness Initial comments: 48 to AA M pt with hx of Chronic Pancreatitis and Hypertension presents with complaints of right lower back pain radiating down the right leg x 2 weeks. He denies any injury to the back or leg, leg swelling, weakness, numbness, or loss of bladder/bowel control. He states the pain is shooting and feels like a tightness in his back and buttock. Reports he takes oxycodone for his chronic abdominal pain and that it does help relieve the back pain temporarily. Also complains of chronic abdominal pain, however denies any new changes to his pain level or new symptoms. Pt reports he is currently following with a GI specialist. -: Gradual, week(s) (2) Location: back Radiation: extremity Severity scale (0 -10): 6 Quality: burning, aching, constant Consistency: constant Worsens with: movement Associated Symptoms: denies other symptoms Treatments Prior to Arrival: other - Related Data Home Medications Medication Instructions Recorded Confirmed Last Taken Methadone [Dolophine] 10 mg PO Q12H 11/08/17 05/01/18 04/30/18 glipiZIDE [Glucotrol] 5 mg PO BID 11/08/17 05/01/18 04/30/18 metFORMIN [Glucophage] 500 mg PO BID 11/08/17 05/01/18 04/30/18 Lisinopril [Zestril TAB] 25 mg PO QDAY 05/01/18 05/01/18 04/30/18 Previous Rx's Medication Instructions Recorded Last Taken Type oxyCODONE [roxiCODONE] 10 mg PO Q4H PRN #30 tablet 11/21/17 04/30/18 Rx Meloxicam [Mobic] 15 mg PO DAILY PRN 15 Days #30 11/27/18 Unknown Rx tablet methOCARBAMOL [Robaxin TAB] 1,500 mg PO TID PRN 15 Days #30 11/27/18 Unknown Rx tablet Allergies Allergy/AdvReac Type Severity Reaction Status Date / Time No Known Allergies Allergy Verified 11/08/17 14:48 ED Review of Systems ROS: Stated complaint: BACK/R LEG PAIN/N/V Other details as noted in HPI Constitutional: denies: chills, fever Respiratory: denies: cough, shortness of breath, wheezing Cardiovascular: denies: chest pain, palpitations Gastrointestinal: abdominal pain (chronic, denies new changes) Musculoskeletal: back pain Skin: denies: rash, lesions Neurological: denies: headache, weakness, numbness, paresthesias, abnormal gait Hematological/Lymphatic: denies: easy bleeding, easy bruising ED Past Medical Hx - Past Medical History Previous Medical History?: Yes Hx Hypertension: Yes Hx Congestive Heart Failure: No Hx Diabetes: Yes Hx GERD: Yes Hx Liver Disease: Yes (probable given hx of EtOH abuse in the past; hx of recurrent pancreatitis) Hx Arthritis: Yes Hx Kidney Stones: Yes (PASSED) Hx Asthma: No Hx COPD: No Hx HIV: No Additional medical history: Pancretitis - Surgical History Past Surgical History?: Yes Hx Cholecystectomy: Yes () Additional Surgical History: left ankle. spleenectomy - Social History Smoking Status: Never Smoker Substance Use Type: None - Medications Home Medications: Home Medications Medication Instructions Recorded Confirmed Last Taken Type Methadone [Dolophine] 10 mg PO Q12H 11/08/17 05/01/18 04/30/18 History glipiZIDE [Glucotrol] 5 mg PO BID 11/08/17 05/01/18 04/30/18 History metFORMIN [Glucophage] 500 mg PO BID 11/08/17 05/01/18 04/30/18 History oxyCODONE [roxiCODONE] 10 mg PO Q4H PRN #30 tablet 11/21/17 05/01/18 04/30/18 Rx Lisinopril [Zestril TAB] 25 mg PO QDAY 05/01/18 05/01/18 04/30/18 History Meloxicam [Mobic] 15 mg PO DAILY PRN 15 Days #30 11/27/18 Unknown Rx tablet methOCARBAMOL [Robaxin TAB] 1,500 mg PO TID PRN 15 Days #30 11/27/18 Unknown Rx tablet ED Physical Exam - General Limitations: No Limitations - Head Head exam: Present: atraumatic, normocephalic - Neck Neck exam: Absent: tenderness, full ROM - Cardiovascular Cardiovascular Exam: Absent: regular rate, normal rhythm, normal heart sounds - GI/Abdominal GI/Abdominal exam: Present: tenderness (minimal, periumbilical). Absent: soft, distended, guarding, rebound, rigid, normal bowel sounds - Extremities Exam Extremities exam: Present: normal inspection. Absent: full ROM, tenderness, pedal edema, joint swelling, calf tenderness - Back Exam Back exam: Present: tenderness, paraspinal tenderness (right sided, lumbar). Absent: full ROM, CVA tenderness (R), vertebral tenderness - Neurological Exam Neurological exam: Present: alert, oriented X3 - Psychiatric Psychiatric exam: Present: normal affect, normal mood - Skin Skin exam: Present: warm, dry, intact, normal color. Absent: rash ED Course Vital Signs 11/27/18 11/27/18 11/27/18 07:45 09:08 09:53 Temperature 98.2 F 98.2 F Pulse Rate 76 72 Respiratory 16 16 18 Rate Blood Pressure 184/110 Blood Pressure 163/93 [Right] O2 Sat by Pulse 100 97 Oximetry ED Medical Decision Making - Lab Data Result diagrams: 11/27/18 07:59 11/27/18 07:59 Lab Results 11/27/18 11/27/18 11/27/18 Range/Units 07:58 07:59 07:59 WBC 5.7 (4.5-11.0) K/mm3 RBC 4.44 (3.65-5.03) M/mm3 Hgb 13.1 (11.8-15.2) gm/dl Hct 39.3 (35.5-45.6) % MCV 89 (84-94) fl MCH 29 (28-32) pg MCHC 33 (32-34) % RDW 13.9 (13.2-15.2) % Plt Count 284 (140-440) K/mm3 Lymph % (Auto) 41.6 H (13.4-35.0) % Stokes % (Auto) 8.5 H (0.0-7.3) % Eos % (Auto) 2.4 (0.0-4.3) % Baso % (Auto) 0.6 (0.0-1.8) % Lymph # 2.4 (1.2-5.4) K/mm3 Stokes # 0.5 (0.0-0.8) K/mm3 Eos # 0.1 (0.0-0.4) K/mm3 Baso # 0.0 (0.0-0.1) K/mm3 Seg Neutrophils % 46.9 (40.0-70.0) % Seg Neutrophils # 2.7 (1.8-7.7) K/mm3 Sodium 136 L (137-145) mmol/L Potassium 4.3 (3.6-5.0) mmol/L Chloride 97.1 L (98-107) mmol/L Carbon Dioxide 27 (22-30) mmol/L Anion Gap 16 mmol/L BUN 11 (9-20) mg/dL Creatinine 0.7 L (0.8-1.5) mg/dL Estimated GFR > 60 ml/min BUN/Creatinine Ratio 16 % Glucose 132 H (75-100) mg/dL Calcium 8.9 (8.4-10.2) mg/dL Total Bilirubin 0.50 (0.1-1.2) mg/dL AST 26 (5-40) units/L ALT 20 (7-56) units/L Alkaline Phosphatase 66 (35-129) units/L Total Protein 8.2 (6.3-8.2) g/dL Albumin 4.6 (3.9-5) g/dL Albumin/Globulin Ratio 1.3 % Lipase 79 H (13-60) units/L Urine Color (Yellow) Urine Turbidity (Clear) Urine pH (5.0-7.0) Ur Specific [place] (1.003-1.030) Urine Protein (Negative) mg/dL Urine Glucose (UA) (Negative) mg/dL Urine Ketones (Negative) mg/dL Urine Blood (Negative) Urine Nitrite (Negative) Urine Bilirubin (Negative) Urine Urobilinogen (<2.0) mg/dL Ur Leukocyte Esterase (Negative) Urine WBC (Auto) (0.0-6.0) /HPF Urine RBC (Auto) (0.0-6.0) /HPF 11/27/18 Range/Units 08:12 WBC (4.5-11.0) K/mm3 RBC (3.65-5.03) M/mm3 Hgb (11.8-15.2) gm/dl Hct (35.5-45.6) % MCV (84-94) fl MCH (28-32) pg MCHC (32-34) % RDW (13.2-15.2) % Plt Count (140-440) K/mm3 Lymph % (Auto) (13.4-35.0) % Stokes % (Auto) (0.0-7.3) % Eos % (Auto) (0.0-4.3) % Baso % (Auto) (0.0-1.8) % Lymph # (1.2-5.4) K/mm3 Stokes # (0.0-0.8) K/mm3 Eos # (0.0-0.4) K/mm3 Baso # (0.0-0.1) K/mm3 Seg Neutrophils % (40.0-70.0) % Seg Neutrophils # (1.8-7.7) K/mm3 Sodium (137-145) mmol/L Potassium (3.6-5.0) mmol/L Chloride (98-107) mmol/L Carbon Dioxide (22-30) mmol/L Anion Gap mmol/L BUN (9-20) mg/dL Creatinine (0.8-1.5) mg/dL Estimated GFR ml/min BUN/Creatinine Ratio % Glucose (75-100) mg/dL Calcium (8.4-10.2) mg/dL Total Bilirubin (0.1-1.2) mg/dL AST (5-40) units/L ALT (7-56) units/L Alkaline Phosphatase (35-129) units/L Total Protein (6.3-8.2) g/dL Albumin (3.9-5) g/dL Albumin/Globulin Ratio % Lipase (13-60) units/L Urine Color Yellow (Yellow) Urine Turbidity Clear (Clear) Urine pH 7.0 (5.0-7.0) Ur Specific [place] 1.015 (1.003-1.030) Urine Protein <15 mg/dl (Negative) mg/dL Urine Glucose (UA) Neg (Negative) mg/dL Urine Ketones Neg (Negative) mg/dL Urine Blood Neg (Negative) Urine Nitrite Neg (Negative) Urine Bilirubin Neg (Negative) Urine Urobilinogen < 2.0 (<2.0) mg/dL Ur Leukocyte Esterase Neg (Negative) Urine WBC (Auto) < 1.0 (0.0-6.0) /HPF Urine RBC (Auto) 4.0 (0.0-6.0) /HPF - Medical Decision Making Pt here with complaints of right lower back pain radiating down right leg. Pt denies any red flag symptoms. Strength and sensation of legs normal bilaterally. Positive right straight leg raise test. Symptoms likely due to sciatica. Will treat conservatively with muscle relaxers and antiinlammatories. Recommend f/u with ortho as needed. Abdominal pain is chronic without new changes. Pt to continue to follow with his GI specialist Critical care attestation.: If time is entered above; I have spent that time in minutes in the direct care of this critically ill patient, excluding procedure time. ED Disposition Clinical Impression: Right-sided low back pain with sciatica, Chronic abdominal pain Disposition: TO HOME OR SELFCARE Is pt being admited?: No Does the pt Need Aspirin: No Condition: Stable Prescriptions: Meloxicam [Mobic] 15 mg PO DAILY PRN 15 Days #30 tablet PRN Reason: Pain, Moderate (4-6) methOCARBAMOL [Robaxin TAB] 1,500 mg PO TID PRN 15 Days #30 tablet PRN Reason: Muscle Spasm Referrals: [facility] MD ELISEO [Primary Care Provider] - 3-5 Days CAROLYN HAYES MD [Staff Physician] - 3-5 Days Time of Disposition: 10:08
== END 2018-11-27 10:32 | disposition home or self-care (01) ==
LOC: ED 07:44
DX: M54.41 Lumbago with sciatica, right side (principal); R10.9 Unspecified abdominal pain; G89.29 Other chronic pain; I10 Essential (primary) hypertension; E11.9 Type 2 diabetes mellitus without complications; K21.9 Gastro-esophageal reflux disease without esophagitis; M19.90 Unspecified osteoarthritis, unspecified site; Z79.84 Long term (current) use of oral hypoglycemic drugs; Z79.899 Other long term (current) drug therapy
CPT/HCPCS: 36415; 80053; 81001; 83690; 85025; 96372; 99283; J1885

== ENCOUNTER 2019-11-07 08:55 | Emergency (ER) | payer MEDICAID ==
[2019-11-07] MEDS ORDERED: PANTOPRAZOLE 40 MG INJ IV ONE (09:58)
[2019-11-07] MEDS ORDERED: MORPHINE 4 MG/1 ML INJ IV ONE (09:58)
[2019-11-07] MEDS ORDERED: ONDANSETRON 4 MG/2 ML INJ IV ONE (09:58)
--- NOTE | 2019-11-07 10:08 | Emergency Department Report ---
HPI - General Chief Complaint: High BP Time Seen by Provider: 11/07/19 09:47 - HPI HPI: There is a 49-year-old -[place] male presents to the emergency department with a complaint of generalized abdominal pain, nausea and vomiting with coffee-ground emesis. The patient did have 1 or 2 episodes of nausea and vomiting yesterday but the majority of his symptoms began this morning. He has a history of chronic pancreatitis, diabetes, GERD, hypertension. Patient does have a previous history of alcohol abuse in the past but denies any recent alco hol abuse. He has a history of a splenectomy. He follows with Dr. Morrison for gastroenterology, but does not have a primary care physician. No recent travel or sick contacts at home. He has not taken anything for symptoms prior to presentation. The patient is on chronic narcotic pain medication for his chronic pancreatitis. ED Past Medical Hx - Past Medical History Hx Hypertension: Yes Hx Congestive Heart Failure: No Hx Diabetes: Yes Hx GERD: Yes Hx Liver Disease: Yes (probable given hx of EtOH abuse in the past; hx of recurr ent pancreatitis) Hx Arthritis: Yes Hx Kidney Stones: Yes (PASSED) Hx Asthma: No Hx COPD: No Hx HIV: No Additional medical history: Pancretitis - Surgical History Hx Cholecystectomy: Yes () Additional Surgical History: left ankle. spleenectomy - Social History Smoking Status: Never Smoker Substance Use Type: None - Medications Home Medications: Home Medications Medication Instructions Recorded Confirmed Last Taken Type Methadone [Dolophine] 10 mg PO Q12H 11/08/17 11/07/19 04/30/18 History glipiZIDE [Glucotrol] 5 mg PO BID 11/08/17 11/07/19 04/30/18 History metFORMIN [Glucophage] 500 mg PO BID 11/08/17 11/07/19 04/30/18 History oxyCODONE [roxiCODONE] 10 mg PO Q4H PRN #30 tablet 11/21/17 11/07/19 04/30/18 Rx lisinopriL [Zestril TAB] 25 mg PO QDAY 05/01/18 11/07/19 04/30/18 History Meloxicam [Mobic] 15 mg PO DAILY PRN 15 Days #30 11/27/18 11/07/19 Unknown Rx tablet methOCARBAMOL [Robaxin TAB] 1,500 mg PO TID PRN 15 Days #30 11/27/18 11/07/19 Unknown Rx tablet Omeprazole 20 mg PO QDAY #20 capsule. 11/07/19 Unknown Rx Ondansetron [Zofran Odt] 4 mg PO Q8HR PRN #15 tab.destinydis 11/07/19 Unknown Rx ED Review of Systems ROS: Stated complaint: VOMIT BLOOD Other details as noted in HPI Comment: All other systems reviewed and negative Constitutional: denies: chills, fever Eyes: denies: eye pain, vision change ENT: denies: ear pain, throat pain Respiratory: denies: cough, shortness of breath Cardiovascular: denies: chest pain, palpitations Gastrointestinal: abdominal pain, nausea, vomiting, hematemesis Genitourinary: denies: dysuria, discharge Musculoskeletal: denies: back pain, arthralgia Skin: denies: rash, lesions Neurological: denies: headache, weakness Physical Exam - Physical Exam Vital Signs: Vital Signs 11/07/19 11/07/19 09:02 09:56 Temperature 98.4 F Pulse Rate 69 64 Respiratory 16 18 Rate Blood Pressure 200/113 Blood Pressure 197/118 [Left] O2 Sat by Pulse 97 98 Oximetry Physical Exam: GENERAL: The patient is well-developed well-nourished. HENT: Normocephalic. Atraumatic. Patient has moist mucous membranes. EYES: Extraocular motions are intact. NECK: Supple. Trachea is midline. CHEST/LUNGS: Clear to auscultation. There is no respiratory distress noted. HEART/CARDIOVASCULAR: Regular. There is no tachycardia. There is no murmur. ABDOMEN: Abdomen is soft. Mild generalized abdominal tenderness to palpation. No guarding. Patient has normal bowel sounds. There is no abdominal distention. SKIN: Skin is warm and dry. NEURO: The patient is awake, alert, and oriented. The patient is cooperative. The patient has no focal neurologic deficits. Normal speech. MUSCULOSKELETAL: There is no tenderness or deformity. ED Course Vital Signs 11/07/19 11/07/19 09:02 09:56 Temperature 98.4 F Pulse Rate 69 64 Respiratory 16 18 Rate Blood Pressure 200/113 Blood Pressure 197/118 [Left] O2 Sat by Pulse 97 98 Oximetry - Consultations Consultation #1: 11/07/19 13:[address] Peter Rowell, [facility]. We discussed the patient's history, presentation today, lab and imaging results. He is in agreement that the patient can be safely discharged home to follow-up outpatient with Dr. Morrison and no further intervention is necessary at this time from a GI standpoint. ED Medical Decision Making - Lab Data Result diagrams: 11/07/19 09:38 11/07/19 09:38 - Radiology Data Radiology results: image reviewed interpreted by me: Chest x-ray does not show any acute process. There are no pleural effusions, obvious pneumonia and there is no pneumothorax. No significant cardiomegaly. Abdominal x-ray shows nonspecific nonobstructive bowel gas - Medical Decision Making This patient presents to the emergency department with a complaint of abdominal pain, nausea and vomiting with coffee-ground emesis. On examination the patient does not appear in any acute distress. He has some mild abdominal tenderness to palpation. However the abdomen is soft, nondistended and nontoxic in appearance. Abdominal x-ray shows nonspecific nonobstructive bowel gas. Patient's labs have been unremarkable including hemoglobin of 12.9. Normal lipase, bilirubin and LFTs. Patient was given a dose of Protonix, IV antiemetic, and a dose of IV analgesia. The patient has been reevaluated multiple times over multiple hours and there is been no further nausea, vomiting and therefore no further coffee-ground hematemesis. His vital signs have been reassuring throughout his ED course including being afebrile. The case was discussed with the on-call sweet goods machine operator who agrees with the plan for discharge home and outpatient follow-up. All the labs, imaging and plan for discharge home were discussed with the patient who understands and agrees to the plan. Critical Care Time: No Critical care attestation.: If time is entered above; I have spent that time in minutes in the direct care of this critically ill patient, excluding procedure time. ED Disposition Clinical Impression: Abdominal pain Qualifiers: Abdominal location: unspecified location Qualified Code(s): R10.9 - Unspecified abdominal pain Hematemesis Qualifiers: Nausea presence: with nausea Qualified Code(s): K92.0 - Hematemesis Hypertension Qualifiers: Hypertension type: essential hypertension Qualified Code(s): I10 - Essential (primary) hypertension Disposition: TO HOME OR SELFCARE Is pt being admited?: No Condition: Stable Instructions: Gastrointestinal Bleeding (ED), Abdominal Pain (ED), Hypertension (ED) Additional Instructions: Please follow-up with your primary care physician and sweet goods machine operator in the next few days. Return to the emergency department with any worsening of your symptoms or with any acute distress. Prescriptions: Omeprazole 20 mg PO QDAY #20 capsule. Ondansetron [Zofran Odt] 4 mg PO Q8HR PRN #15 tab.rapdis PRN Reason: Nausea Referrals: GERMAN MORRISON MD [Staff Physician] - 2-3 Days PRIMARY CAREMD [Primary Care Provider] - 2-3 Days Time of Disposition: 13:10
[2019-11-07 10:15] LABS: Hemoglobin 12.9 gm/dl (11.8-15.2); Mean Corpuscular HGB Conc 36 % (32-34); Mean Corpuscular Volume 88 fl (84-94); Platelet Count 291 K/mm3 (140-440); Red Blood Count 4.11 M/mm3 (3.65-5.03); Red Cell Distribution Width 14.8 % (13.2-15.2)
[2019-11-07 10:28] LABS: Alanine Aminotransferase 12 units/L (7-56); Albumin 4.2 g/dL (3.9-5); BUN/Creatinine Ratio 13; Blood Urea Nitrogen 10 mg/dL (9-20); Calcium 9.2 mg/dL (8.4-10.2); Hemolysis Index 5
[2019-11-07 11:34] LABS: INR 1.02 (0.87-1.13); Partial Thromboplastin Time 26.9 Sec. (24.2-36.6)
--- NOTE | 2019-11-07 12:16 | XRay Report ---
ABDOMEN 5 VIEW(S) INDICATION: Abd pain. COMPARISON: None available. FINDINGS: Bowel gas pattern: Expected gas is seen along the colon without significant dilatation. Nonspecific s cattered mildly dilated small bowel loops are noted. Free air: None seen. Stones: None seen. Chest: No acute findings. The right hemidiaphragm is elevated. Additional Findings: No additional significant findings. IMPRESSION: Nonspecific, nonobstructive bowel gas pattern. Signer Name: Carlos Victoria MD Signed: 11/07/2019 12:12 PM Workstation Name: [id number]
[2019-11-07 13:09] VITALS: BP 165/96
== END 2019-11-07 14:09 | disposition home or self-care (01) ==
LOC: ED 08:55
DX: K92.0 Hematemesis (principal); R10.84 Generalized abdominal pain; I10 Essential (primary) hypertension; E11.9 Type 2 diabetes mellitus without complications; K21.9 Gastro-esophageal reflux disease without esophagitis; M19.91 Primary osteoarthritis, unspecified site; Z90.49 Acquired absence of other specified parts of digestive tract; Z90.89 Acquired absence of other organs; Z98.890 Other specified postprocedural states; Z79.84 Long term (current) use of oral hypoglycemic drugs; Z79.899 Other long term (current) drug therapy
CPT/HCPCS: 36415; 74022; 80053; 83690; 85027; 85610; 85730; 96374; 96375; 99284; C9113; J2270; J2405; 80320; G0480

== ENCOUNTER 2020-08-31 08:32 | Emergency (ER) | payer MEDICAID ==
[2020-08-31 08:41] VITALS: BP 185/98
[2020-08-31] MEDS ORDERED: KETOROLAC 30 MG/1 ML INJ IM ONE (09:45)
--- NOTE | 2020-08-31 09:47 | Emergency Department Report ---
ED Back Pain/Injury HPI - General Chief Complaint: Back Pain/Injury Stated Complaint: BACK PAINS Time Seen by Provider: 08/31/20 08:58 Source: patient Limitations: No Limitations - History of Present Illness Initial Comments: 50-year-old -[place] male presents to the emergency room complaining of lower back pain that radiates down his leg for over a week. Patient states is worse on the right side. Patient states he has had this before and was given a shot when he came here he reports that he had improved for a long time. Patient chronically is on Percocets and is given it by Dr. Sibley. Patient denies any new injury, no numbness no weakness, no loss of bowel or urine. Patient states is difficult to get comfortable when sitting. Patient is a diabetic suffers from chronic pancreatitis. MD Complaint: back pain Similar Symptoms Previously: Yes Radiation: right leg Severity scale (0 -10): 9 Quality: burning, stabbing Consistency: constant Improves With: none Worsens With: movement, sitting upright Associated Symptoms: denies other symptoms. denies: numbness, difficulty walking, difficulty urinating, incontinence, constipation Treatments Prior to Arrival: prescription analgesics (Percocet) - Related Data Home Medications Medication Instructions Recorded Confirmed Last Taken Methadone [Dolophine] 10 mg PO Q12H 11/08/17 11/07/19 04/30/18 glipiZIDE [Glucotrol] 5 mg PO BID 11/08/17 11/07/19 04/30/18 metFORMIN [Glucophage] 500 mg PO BID 11/08/17 11/07/19 04/30/18 lisinopriL [Zestril TAB] 25 mg PO QDAY 05/01/18 11/07/19 04/30/18 Previous Rx's Medication Instructions Recorded Last Taken Type oxyCODONE [roxiCODONE] 10 mg PO Q4H PRN #30 tablet 11/21/17 04/30/18 Rx Meloxicam [Mobic] 15 mg PO DAILY PRN 15 Days #30 11/27/18 Unknown Rx tablet methOCARBAMOL [Robaxin TAB] 1,500 mg PO TID PRN 15 Days #30 11/27/18 Unknown Rx tablet Omeprazole 20 mg PO QDAY #20 capsule. 11/07/19 Unknown Rx Ondansetron [Zofran Odt] 4 mg PO Q8HR PRN #15 tab.rapdis 11/07/19 Unknown Rx Allergies Allergy/AdvReac Type Severity Reaction Status Date / Time No Known Allergies Allergy Verified 11/08/17 14:48 ED Review of Systems ROS: Stated complaint: BACK PAINS Other details as noted in HPI Comment: All other systems reviewed and negative ED Past Medical Hx - Past Medical History Previous Medical History?: Yes Hx Hypertension: Yes Hx Congestive Heart Failure: No Hx Diabetes: Yes Hx GERD: Yes Hx Liver Disease: Yes (probable given hx of EtOH abuse in the past; hx of recurrent pancreatitis) Hx Arthritis: Yes Hx Kidney Stones: Yes (PASSED) Hx Asthma: No Hx COPD: No Hx HIV: No Additional medical history: Pancretitis - Surgical History Past Surgical History?: Yes Hx Cholecystectomy: Yes () Additional Surgical History: left ankle. spleenectomy - Social History Smoking Status: Never Smoker Substance Use Type: None - Medications Home Medications: Home Medications Medication Instructions Recorded Confirmed Last Taken Type Methadone [Dolophine] 10 mg PO Q12H 11/08/17 11/07/19 04/30/18 History glipiZIDE [Glucotrol] 5 mg PO BID 11/08/17 11/07/19 04/30/18 History metFORMIN [Glucophage] 500 mg PO BID 11/08/17 11/07/19 04/30/18 History oxyCODONE [roxiCODONE] 10 mg PO Q4H PRN #30 tablet 11/21/17 11/07/19 04/30/18 Rx lisinopriL [Zestril TAB] 25 mg PO QDAY 05/01/18 11/07/19 04/30/18 History Meloxicam [Mobic] 15 mg PO DAILY PRN 15 Days #30 11/27/18 11/07/19 Unknown Rx tablet methOCARBAMOL [Robaxin TAB] 1,500 mg PO TID PRN 15 Days #30 11/27/18 11/07/19 Unknown Rx tablet Omeprazole 20 mg PO QDAY #20 11/07/19 Unknown Rx Ondansetron [Zofran Odt] 4 mg PO Q8HR PRN #15 tab.rapdis 11/07/19 Unknown Rx ED Physical Exam - General Limitations: No Limitations General appearance: alert, in no apparent distress - Head Head exam: Present: atraumatic, normocephalic - Eye Eye exam: Present: normal appearance - ENT ENT exam: Present: mucous membranes moist - Neck Neck exam: Present: normal inspection, full ROM - Respiratory Respiratory exam: Absent: accessory muscle use - Cardiovascular Cardiovascular Exam: Present: regular rate - Extremities Exam Extremities exam: Present: normal inspection, full ROM. Absent: pedal edema - Back Exam Back exam: Present: full ROM - Expanded Back Exam Expanded Back exam: Sciatic Notch Tenderness: Right, Positive Straight Leg Raise: Right - Neurological Exam Neurological exam: Present: alert, oriented X3, normal gait - Psychiatric Psychiatric exam: Present: normal affect, normal mood - Skin Skin exam: Present: warm, dry, intact, normal color. Absent: rash ED Course Vital Signs 08/31/20 08:40 Temperature 98.4 F Pulse Rate 67 Respiratory 18 Rate Blood Pressure 185/98 O2 Sat by Pulse 99 Oximetry ED Medical Decision Making - Medical Decision Making 50-year-old -[place] male presents to the emergency room complaining of lower back pain that radiates down his leg for over a week. Patient states is worse on the right side. Patient states he has had this before and was given a shot when he came here he reports that he had improved for a long time. Patient chronically is on Percocets and is given it by Dr. Sibley. Patient denies any new injury, no numbness no weakness, no loss of bowel or urine. Patient states is difficult to get comfortable when sitting. Patient is a diabetic suffers from chronic pancreatitis. Patient given a Toradol injection and referred to her primary care provider as well as an orthopedic provider. Critical care attestation.: If time is entered above; I have spent that time in minutes in the direct care of this critically ill patient, excluding procedure time. ED Disposition Clinical Impression: Chronic back pain greater than 3 months duration, Sciatica Disposition: TO HOME OR SELFCARE Is pt being admited?: No Does the pt Need Aspirin: No Condition: Stable Instructions: Sciatica, [id number], Chronic Back Pain, [id number] Additional Instructions: Continue with your chronic pain medication of Percocet. Follow-up with a primary care provider I have listed 1 below for your convenience. Increase your fluid intake. Take your chronic medications as prescribed. Follow-up with a back specialist. Referrals: VAHID GONZALES MD [Staff Physician] - 3-5 Days [facility] [Provider Group] - 3-5 Days [facility], [facility] [Provider Group] - 3-5 Days [facility] [Provider Group] - 3-5 Days Forms: Work/School Release Form(ED)
== END 2020-08-31 11:26 | disposition home or self-care (01) ==
LOC: ED 08:32
DX: M54.41 Lumbago with sciatica, right side (principal); E11.8 Type 2 diabetes mellitus with unspecified complications; I10 Essential (primary) hypertension; K21.9 Gastro-esophageal reflux disease without esophagitis; K86.1 Other chronic pancreatitis; G89.29 Other chronic pain
CPT/HCPCS: 96372; 99281; J1885

== ENCOUNTER 2021-09-09 20:11 | Emergency (ER) | payer MEDICAID ==
[2021-09-09 21:12] VITALS: BP 154/93
[2021-09-10] MEDS ORDERED: SODIUM CHLORIDE 0.9% 1000 ML 1,000 ML IV ONE (01:45)
[2021-09-10] MEDS ORDERED: METOCLOPRAMIDE 10 MG/2 ML INJ IV ONE (01:45)
[2021-09-10] MEDS ORDERED: diphenhydrAMINE 50 MG/ML VIAL IV ONE (01:45)
--- NOTE | 2021-09-10 03:08 | Cat Scan Report ---
CT head without contrast INDICATION : headache with head injury. TECHNIQUE: Axial imaging performed from the skull apex through the skull base without the use of con trast. All CT scans at this location are performed using CT dose reduction for ALARA by means of aut omated exposure control. COMPARISON: None FINDINGS: Parenchyma: No mass, stroke or hemorrhage. Ventricles: Ventricles are normal in size and appear symmetric. Soft tissues: Soft tissues including the orbits appear normal. Bones: No acute osseous abnormality. Sinuses: Sinuses and mastoid air cells are clear. IMPRESSION: No acute abnormality. Signer Name: Esau Shearer MD Signed: 09/10/2021 3:03 AM Workstation Name: [id number]
--- NOTE | 2021-09-10 05:31 | Emergency Department Report ---
ED Headache HPI - General Chief Complaint: Headache Stated Complaint: FALL, LAC OVER LF EYE, PAIN Time Seen by Provider: 09/10/21 01:32 - History of Present Illness Initial Comments: 51-year-old male with past medical history hypertension diabetes reports to the ER with complaints of headache and dizziness after falling from a standing position on 09/08/2021. Patient stated he was at home he reports that he had no loss of consciousness and no vomiting he had a small lack to the left side of his head that he put some skin glue on his self. Patient reports taking his pain medicine Percocet which is not helping thus he decided to come to the ER for further evaluation. Patient denies neck pain patient denies nausea. Patient reports no other acute symptoms at this time. Patient reports no numbness no tingling in his legs or upper extremities. Allergies/Adverse Reactions: Allergies No Known Allergies Allergy (Verified 11/08/17 14:48) Home Medications: Ambulatory Orders Methadone [Dolophine] 10 mg PO Q12H 11/08/17 glipiZIDE [Glucotrol] 5 mg PO BID 11/08/17 metFORMIN [Glucophage] 500 mg PO BID 11/08/17 oxyCODONE [roxiCODONE] 10 mg PO Q4H PRN #30 tablet 11/21/17 lisinopriL [Zestril TAB] 25 mg PO QDAY 05/01/18 Meloxicam [Mobic] 15 mg PO DAILY PRN 15 Days #30 tablet 11/27/18 methOCARBAMOL [Robaxin TAB] 1,500 mg PO TID PRN 15 Days #30 tablet 11/27/18 Omeprazole 20 mg PO QDAY #20 capsule. 11/07/19 Ondansetron [Zofran Odt] 4 mg PO Q8HR PRN #15 tab.rapdis 11/07/19 ED Review of Systems ROS: Stated complaint: FALL, LAC OVER LF EYE, PAIN Other details as noted in HPI Comment: All other systems reviewed and negative Neurological: headache, other (Dizziness) ED Past Medical Hx - Past Medical History Previous Medical History?: Yes Hx Hypertension: Yes Hx Congestive Heart Failure: No Hx Diabetes: Yes Hx GERD: Yes Hx Liver Disease: Yes (probable given hx of EtOH abuse in the past; hx of recurrent pancreatitis) Hx Arthritis: Yes Hx Kidney Stones: Yes (PASSED) Hx Asthma: No Hx COPD: No Hx HIV: No Additional medical history: Pancretitis - Surgical History Hx Cholecystectomy: Yes () Additional Surgical History: left ankle. spleenectomy - Social History Smoking Status: Never Smoker Substance Use Type: None - Medications Home Medications: Home Medications Medication Instructions Recorded Confirmed Last Taken Type Methadone [Dolophine] 10 mg PO Q12H 11/08/17 11/07/19 04/30/18 History glipiZIDE [Glucotrol] 5 mg PO BID 11/08/17 11/07/19 04/30/18 History metFORMIN [Glucophage] 500 mg PO BID 11/08/17 11/07/19 04/30/18 History oxyCODONE [roxiCODONE] 10 mg PO Q4H PRN #30 tablet 11/21/17 11/07/19 04/30/18 Rx lisinopriL [Zestril TAB] 25 mg PO QDAY 05/01/18 11/07/19 04/30/18 History Meloxicam [Mobic] 15 mg PO DAILY PRN 15 Days #30 11/27/18 11/07/19 Unknown Rx tablet methOCARBAMOL [Robaxin TAB] 1,500 mg PO TID PRN 15 Days #30 11/27/18 11/07/19 Unknown Rx tablet Omeprazole 20 mg PO QDAY #20 capsule. 11/07/19 Unknown Rx Ondansetron [Zofran Odt] 4 mg PO Q8HR PRN #15 tab.rapdis 11/07/19 Unknown Rx ED Physical Exam - General Limitations: No Limitations General appearance: alert, in no apparent distress - Head Head exam: Present: atraumatic, normocephalic - Eye Eye exam: Present: normal appearance - ENT ENT exam: Present: mucous membranes moist - Neck Neck exam: Present: normal inspection - Respiratory Respiratory exam: Present: normal lung sounds bilaterally. Absent: respiratory distress - Cardiovascular Cardiovascular Exam: Present: regular rate, normal rhythm. Absent: systolic murmur, diastolic murmur, rubs, gallop - GI/Abdominal GI/Abdominal exam: Present: soft, normal bowel sounds - Rectal Rectal exam: Present: deferred - Extremities Exam Extremities exam: Present: normal inspection - Back Exam Back exam: Present: normal inspection - Neurological Exam Neurological exam: Present: alert, altered, oriented X3, normal gait, motor sensory deficit - Expanded Neurological Exam Expanded Speech: Present: fluid speech Cranial nerves: EOM's Intact: Normal, Facial Sensation: Normal Best Eye Response ([place]): (4) open spontaneously Best Motor Response ([place]): (6) obeys commands Best Verbal Response ([place]): (5) oriented [place] Total: 15 - Psychiatric Psychiatric exam: Present: normal affect, normal mood - Skin Skin exam: Present: warm, dry, intact, normal color. Absent: rash ED Course Vital Signs 09/09/21 20:21 Temperature 99.1 F Pulse Rate 79 Respiratory 18 Rate Blood Pressure 154/93 O2 Sat by Pulse 96 Oximetry ED Medical Decision Making - Radiology Data Radiology results: report reviewed Ct head - IMPRESSION: No acute abnormality. - Medical Decision Making 51-year-old male who fell hitting his head on 09-08-2021 reports to the ER with headache and dizziness after having no relief after taking his Percocet pain. Patient denies loss of consciousness no vomiting no nausea no numbness or tingling in upper or lower extremities. Patient reports no other acute signs and symptoms. On physical exam there are no neurological deficits, lack to the left side of face has been sealed with skin glue that patient has put on at home. Patient is ANO x4. CT of head is negative for no acute process. IV medication was given Reglan with Benadryl and an IV fluids. Patient reports a decrease in headache and reports feeling better normal reports dizziness. Patient is stable for discharge home patient informed of his CT results. Patient informed to follow-up with his primary care provider as needed. Patient informed that if his symptoms get worse to report back to the ER as quickly as possible. Patient agrees with plan of care and verbalized understanding. Vital Signs 09/09/21 20:21 Temperature 99.1 F Pulse Rate 79 Respiratory 18 Rate Blood Pressure 154/93 O2 Sat by Pulse 96 Oximetry Critical care attestation.: If time is entered above; I have spent that time in minutes in the direct care of this critically ill patient, excluding procedure time. ED Disposition Clinical Impression: Head injury Qualifiers: Encounter type: initial encounter Qualified Code(s): S09.90XA - Unspecified injury of head, initial encounter Headache Qualifiers: Headache type: other headache syndrome Qualified Code(s): G44.89 - Other headache syndrome Disposition: 01 HOME / SELF CARE / HOMELESS Is pt being admited?: No Condition: Stable Instructions: General Headache Without Cause, [id number], Head Injury, Adult, Concussion, Adult Referrals: PRIMARY CARE,MD [Primary Care Provider] - 3-5 Days Time of Disposition: 05:16
== END 2021-09-10 07:12 | disposition home or self-care (01) ==
LOC: ED 20:11
DX: S09.90XA Unspecified injury of head, initial encounter (principal); I10 Essential (primary) hypertension; K21.9 Gastro-esophageal reflux disease without esophagitis; E11.9 Type 2 diabetes mellitus without complications; M19.90 Unspecified osteoarthritis, unspecified site; N20.0 Calculus of kidney; K76.9 Liver disease, unspecified; Z90.49 Acquired absence of other specified parts of digestive tract; Z79.899 Other long term (current) drug therapy
CPT/HCPCS: 70450; 96361; 96374; 96375; 99283; J1200; J2765; J7030